=== PATIENT | male | born 1955 | race African-American/Black ===

== ENCOUNTER 2017-03-16 12:45 | Inpatient (IN) | payer OTHER ==
[2017-03-16] VITALS (14 sets, daily range): BP systolic 103–129; BP diastolic 52–99; PULSE 78–91; TEMP 36.7–37.1; O2SAT 97–100; Ht 190.5 cm; Wt 103.0 kg
[~2017-03-16] VITALS: Ht 190.5 cm; Wt 103.0 kg
[2017-03-16] MEDS ORDERED: GI COCKTAIL PO STA (13:11)
[2017-03-16] MEDS ORDERED: SODIUM CHLORIDE 0.9% 1000ML 1,000 ML IV STA (13:11)
--- NOTE | 2017-03-16 13:19 | EMERGENCY ROOM VISIT NOTE ---
History Report prepared by Miguel: Debbie Mendoza Under the Supervision of: Dr. Wu Jacome M.D. First contact with patient: 12:55 Chief Complaint: ABDOMINAL PAIN Stated Complaint: BLACK STOOL,ABD PAIN History of Present Illness The patient is a 62 year old male who presents to the Emergency Room with complaints of an episode of abdominal pain starting a week ago. The patient states he has had similar pain like this before. He reports that the pain feels crampy and uncomfortable. He reports that sometimes it feels like he has to pass gas, but nothing comes out. The patient complains of melena, loss of appetite, fever, chills, diaphoresis, weakness, dizziness, and nausea. He notes that he has had a colonoscopy in the past that showed no polyps. The patient currently rates his pain as a 2/10 in severity. Source of History: patient Onset: a week ago Position: abdomen Symptom Intensity: 2/10 Quality: cramping, other (uncomfortable) Timing: other (episode) Associated Symptoms: + fevers, + chills, + diaphoresis, + nausea, + melena, + weakness Note: The patient complains of loss of appetite and dizziness. Review of Systems See HPI for pertinent positives & negatives. A total of 10 systems reviewed and were otherwise negative. Past Medical & Surgical Medical Problems: (1) Hx of abdominal pain Family History No pertinent family history Social History Alcohol Use: none Marital Status: single Housing Status: other (incarcerated) Current/Historical Medications Scheduled Pantoprazole (Protonix), 40 MG PO DAILY Allergies Coded Allergies: No Known Allergies (Unverified , 03/16/17) Physical Exam Vital Signs Date Time Temp Pulse Resp B/P (MAP) Pulse Ox O2 Delivery O2 Flow Rate FiO2 03/16/17 15:23 03/16/17 15:21 36.9 86 16 118/60 98 03/16/17 15:06 36.7 91 20 119/99 100 03/16/17 14:16 100 Room Air 03/16/17 14:16 87 18 128/59 100 Room Air 03/16/17 13:18 96 03/16/17 12:47 36.8 119 20 123/72 99 Room Air Physical Exam GENERAL: Patient is a healthy-appearing well-nourished HEAD: Normocephalic atraumatic EYES: Ocular movements intact pupils equal and react to light OROPHARYNX mucous membranes are moist no exudates present no erythema or edema present NECK: Supple no nuchal rigidity CHEST: Good equal expansion LUNGS: Clear and equal to auscultation CARDIAC: Normal S1 and S2 ABDOMEN: Soft nontender no guarding BACK: No CVA tenderness EXTREMITIES: No pain upon palpation normal muscle strength in all groups no clubbing cyanosis or edema NEURO: Patient is following commands and answering questions appropriately. Alert and oriented x3 Cranial Nerves 2-12 grossly intact Medical Decision & Procedures ER Provider Diagnostic Interpretation: Radiology results as stated below per my review and radiologist interpretation: ABD/PELVIS IV CONTRAST ONLY HISTORY: 62 years-old Male Pt c/o abd discomfort, gi bleed COMPARISON: None available TECHNIQUE: Axial CT images of the abdomen and pelvis were obtained following the intravenous administration of 93 mL Optiray 320. A dose lowering technique was used consistent with the principals of MARIPOSA. FINDINGS: Linear subsegmental pleural based opacities of the right greater than left lung bases suggest atelectasis with scarring. There is a 4 mm noncalcified pulmonary nodule of the lateral basal segment left lower lobe. No pneumoperitoneum is identified. The imaged inferior cardiac chambers are unremarkable. The liver, gallbladder, pancreas and adrenal glands appear normal. There is a nonspecific 4 mm low attenuating lesion of the mid spleen which is too small to characterize. There are a few low attenuating subcentimeter circumscribed lesions of the bilateral kidneys, largest on the right measuring 10 mm suggesting cysts. No renal calculi or hydronephrosis. There is marked enlargement and heterogeneity of the prostate measuring up to 6.5 x 6.7 x 11.5 cm in AP, transverse and craniocaudal dimensions extending into the bladder base causing significant mass effect upon the bladder. There is wall thickening of the urinary bladder gradually. There is mild atherosclerosis of the abdominal aorta. There is no bulky retroperitoneal adenopathy. There is no bowel obstruction. No colonic mass is identified. No focal bowel wall thickening or inflammatory changes to account for the patient's symptoms. No evidence of acute appendicitis. Small fat filled umbilical hernia is noted with diastases of the umbilical [1.5 cm. There are postsurgical changes of the right lower anterior abdominal wall. The bones appear intact. IMPRESSION: 1. No acute intra-abdominal or intrapelvic abnormality identified. No bowel obstruction. 2. Marked enlargement and heterogeneity of the prostate measuring up to 6.5 x 6.7 x 11.5 cm causes significant mass effect on the floor of the urinary bladder without evidence of urinary bladder outlet obstruction. Correlate with physical exam and PSA level. 3. 4 mm noncalcified pulmonary nodule of the lateral basal segment left lower lobe. Please refer to below summary of Fleischner criteria recommendations for follow-up of incidental CT nodules (José Luis Medrano, Guidelines for management of small pulmonary nodules detected on CT scans: A statement from the Fleischner Society, Radiology 237: [phone].) SOLID NODULES Solitary nodule size: <6 mm * Low risk patients: no follow-up needed * high risk patients: optional CT at 12 months Note: newly detected indeterminate nodule in persons 35 years of age or older. * Low risk patients: minimal or absent history of smoking and/or other known risk factors * high risk patients: history of smoking or of other known risk factors (e.g. first degree relative with lung cancer, or exposure to asbestos, radon, uranium) * if a nodule up to 8 mm is partly solid or is ground glass further follow-up is required after 24 months to exclude possible slow growing adenocarcinoma (PILO) The above report was generated using voice recognition software. It may contain grammatical, syntax or spelling errors. Electronically signed by: John Thomas M.D. 03/16/2017 2:17 PM Dictated Date/Time: 03/16/2017 2:07 PM Laboratory Results 03/16/17 13:17 Red Blood Count 2.47, Mean Corpuscular Volume 88.7, Mean Corpuscular Hemoglobin 29.6, Mean Corpuscular Hemoglobin Concent 33.3, Mean Platelet Volume 10.5, Neutrophils (%) (Auto) 71.7, Lymphocytes (%) (Auto) 16.2, Monocytes (%) (Auto) 7.1, Eosinophils (%) (Auto) 2.1, Basophils (%) (Auto) 0.5, Neutrophils # (Auto) 8.38, Lymphocytes # (Auto) 1.89, Monocytes # (Auto) 0.83, Eosinophils # (Auto) 0.25, Basophils # (Auto) 0.06 03/16/17 13:17 Test 03/16/17 13:17 03/16/17 13:27 03/16/17 14:14 White Blood Count 11.69 K/uL (4.8-10.8) Red Blood Count 2.47 M/uL (4.7-6.1) Hemoglobin 7.3 g/dL (14.0-18.0) Hematocrit 21.9 % (42-52) Mean Corpuscular Volume 88.7 fL (80-100) Mean Corpuscular Hemoglobin 29.6 pg (25-34) Mean Corpuscular Hemoglobin Concent 33.3 g/dl (32-36) Platelet Count 295 K/uL (130-400) Mean Platelet Volume 10.5 fL (7.4-10.4) Neutrophils (%) (Auto) 71.7 % Lymphocytes (%) (Auto) 16.2 % Monocytes (%) (Auto) 7.1 % Eosinophils (%) (Auto) 2.1 % Basophils (%) (Auto) 0.5 % Neutrophils # (Auto) 8.38 K/uL (1.4-6.5) Lymphocytes # (Auto) 1.89 K/uL (1.2-3.4) Monocytes # (Auto) 0.83 K/uL (0.11-0.59) Eosinophils # (Auto) 0.25 K/uL (0-0.5) Basophils # (Auto) 0.06 K/uL (0-0.2) RDW Standard Deviation 46.8 fL (36.4-46.3) RDW Coefficient of Variation 14.9 % (11.5-14.5) Immature Granulocyte % (Auto) 2.4 % Immature Granulocyte # (Auto) 0.28 K/uL (0.00-0.02) Nucleated RBC Absolute Count (auto) 0.29 K/uL (0-0) Nucleated Red Blood Cells % 2.5 % Polychromasia 1+ Prothrombin Time 10.1 SECONDS (9.0-12.0) Prothromb Time International Ratio 0.9 (0.9-1.1) Activated Partial Thromboplast Time 20.8 SECONDS (21.0-31.0) Partial Thromboplastin Ratio 0.8 Est Creatinine Clear Calc Drug Dose 114.2 ml/min Estimated GFR () 106.2 Estimated GFR (Non- 91.6 BUN/Creatinine Ratio 16.0 (10-20) Calcium Level 8.6 mg/dl (8.5-10.1) Ferritin 27.6 ng/ml (8.0-388.0) Total Bilirubin 0.5 mg/dl (0.2-1) Direct Bilirubin 0.2 mg/dl (0-0.2) Aspartate Amino Transf (AST/SGOT) 222 U/L (15-37) Alanine Aminotransferase (ALT/SGPT) 449 U/L (12-78) Alkaline Phosphatase 54 U/L (45-117) Total Protein 6.4 gm/dl (6.4-8.2) Albumin 3.1 gm/dl (3.4-5.0) Lipase 297 U/L (73-393) Prostate Specific Antigen 50.400 ng/ml (0.000-4.000) Bedside Hemoglobin 7.5 g/dl (14.0-18.0) Bedside Hematocrit 22 % (42-52) Bedside Sodium 138 mEq/L (135-144) Bedside Potassium 3.7 mEq/L (3.3-5.0) Bedside Chloride 102 mEq/L (101-112) Bedside Total CO2 23 mEq/l (24-31) Anion Gap 18.0 mmol/L (16-25) Bedside Blood Urea Nitrogen 15 mg/dl (7-18) Bedside Creatinine 0.9 mg/dl (0.6-1.3) Bedside Glucose (other) 133 mg/dl (70-99) Bedside Ionized Calcium (Jacinto) 1.16 mmol/l (1.12-1.32) Acetaminophen Level 3 ug/ml (10-30) Hepatitis C Antibody PRELIM POS (NEG) Labs reviewed by ED physician. Medications Administered Medications (Trade) Dose Ordered Sig/Gabriel Route Start Time Stop Time Status Last Admin Dose Admin Sodium Chloride 1,000 ml @ 999 mls/hr Q1H1M STAT IV 03/16/17 13:11 03/16/17 14:11 DC 03/16/17 13:41 999 MLS/HR Pantoprazole Sodium 80 mg/ Dextrose 120 ml @ 480 mls/hr TODAY@1330 IV 03/16/17 13:30 03/16/17 13:44 DC 03/16/17 13:39 480 MLS/HR Pantoprazole Sodium 40 mg/ Dextrose 100 ml @ 20 mls/hr Q5H IV 03/16/17 13:45 03/16/17 18:44 03/16/17 13:39 20 MLS/HR Lidocaine HCl (Viscous Lidocaine 2% Soln) 20 ml STK-MED ONCE .ROUTE 03/16/17 13:31 03/16/17 13:32 DC 03/16/17 13:40 20 ML Magnesium Hydroxide (Milk Of Magnesia Susp) 30 ml STK-MED ONCE .ROUTE 03/16/17 13:31 03/16/17 13:32 DC 03/16/17 13:40 30 ML ECG Indication: abdominal pain Rate (beats per minute): 87 Rhythm: normal sinus Findings: no acute ischemic change, no ectopy ED Course 1305: Past medical records reviewed. The patient was evaluated in room C9. A complete history and physical examination was performed. 1311: Ordered GI Cocktail 24 ml PO, Pantoprazole Sodium 1 ea IV, NSS 1000 ml @ 999 mls/hr IV. 1330: Ordered Pantoprazole Sodium 90 mg/ Dextrose 120 ml @ 480 mls/hr IV. 1331: Ordered Magnesium Hydroxide 30 ml .ROUTE, Lidocaine HCl 20 ml .ROUTE. 1344: I just signed the blood consent for him and it has been placed on the chart. 1345: Ordered Pantoprazole Sodium 40 mg/ Dextrose 100 ml @ 20 mls/hr IV. 1434: I discussed the patient's case with ESTRELLA Haines, she has agreed to evaluate the patient for further management and care. Medical Decision Differential diagnosis: Etiologies such as diverticulosis, AVM, coagulopathy, colitis, inflammatory bowel disease, malignancy, Irma-Rivas tear, esophagitis, peptic ulcer disease , variceal bleed, gastritis, epistaxis, fissure, hemorrhoids, as well as others were entertained. This is a 62-year-old male who presents emergency department complaining of GI bleed. Patient is a history of GI bleeds previously. He has been having black and tarry stool for the past week. His hemoglobin here is 7. Based on this finding the patient was started on a Protonix bolus and drip. He was typed and screened for 2 units of packed red blood cells. The blood consent was signed by the patient and placed on the chart. The patient is heme positive on rectal exam. Based on these findings I did discuss the case with the hospitalist service who agreed to admit the patient. Both patient and caregivers were in agreement with the treatment plan. Medication Reconcilliation Current Medication List: was personally reviewed by me Blood Pressure Screening Patient's blood pressure: Normal blood pressure Blood pressure disposition: Did not require urgent referral Consults Time Called: 1430 Consulting Physician: ESTRELLA Haines Returned Call: 1434 I discussed the patient's case with ESTRELLA Haines, she has agreed to evaluate the patient for further management and care. Impression Primary Impression: GI bleed Additional Impression: Anemia Critical Care I have personally spent greater than 30 minutes of critical care time in the direct management of this patient. This includes bedside care, interpretation of diagnostic studies, and testing, discussion with consultants, patient, and family members, and other required patient management activities. This 30 minutes is in excess of all separately billable procedures. Scribe Attestation The scribe's documentation has been prepared under my direction and personally reviewed by me in its entirety. I confirm that the note above accurately reflects all work, treatment, procedures, and medical decision making performed by me. Departure Information Dispostion Being Evaluated By Hospitalist Referrals Wilner LINDSEY (PCP) Patient Instructions My [facility] Problem Qualifiers Primary Impression: GI bleed GI bleed type/associated pathology: unspecified gastrointestinal hemorrhage type Qualified Codes: K92.2 - Gastrointestinal hemorrhage, unspecified Additional Impression: Anemia Anemia type: unspecified type Qualified Codes: D64.9 - Anemia, unspecified
[2017-03-16 13:30] LABS: BASO % 0.5 %; BASO ABS # 0.06 K/uL (0-0.2); EOS % 2.1 %; HEMATOCRIT 21.9 % (42-52); IG% 2.4 %; LYMPH % 16.2 %; LYMPH ABS # 1.89 K/uL (1.2-3.4); MEAN CELL VOLUME 88.7 fL (80-100); MEAN CORPUSCULAR HEMOGLOBIN 29.6 pg (25-34); MEAN CORPUSCULAR HGB CONC 33.3 g/dl (32-36); MEAN PLATELET VOLUME 10.5 fL (7.4-10.4); MONO % 7.1 %; NEUT % 71.7 %; PLATELET COUNT 295 K/uL (130-400); RED BLOOD COUNT 2.47 M/uL (4.7-6.1); WHITE BLOOD COUNT 11.69 K/uL (4.8-10.8)
[2017-03-16] MEDS ORDERED: PANTOprazole INJ 80 MG in DEXTROSE 5% 100ML IV SCH (13:30)
[2017-03-16] MEDS ORDERED: OPTIRAY 320 IV PRN (13:30)
[2017-03-16] MEDS ORDERED: LIDOCAINE HCL 2% VISC SOLN 20 ML UDC ONE (13:31)
[2017-03-16] MEDS ORDERED: MAGNESIUM HYDROXIDE SUSP 30 ML UDC ONE (13:31)
[2017-03-16 13:38] LABS: ISTAT CREATININE 0.9 mg/dl (0.6-1.3); ISTAT HEMOGLOBIN 7.5 g/dl (14.0-18.0); ISTAT IONIZED CALCIUM 1.16 mmol/l (1.12-1.32)
[2017-03-16 13:44] LABS: INR 0.9 (0.9-1.1); PARTIAL THROMBOPLASTIN RATIO 0.8; PROTHROMBIN TIME (PATIENT) 10.1 SECONDS (9.0-12.0)
[2017-03-16] MEDS ORDERED: PANTOprazole INJ 40 MG in DEXTROSE 5% 100ML IV SCH (13:45)
[2017-03-16 13:54] LABS: CALCIUM 8.6 mg/dl (8.5-10.1); CREATININE 0.89 mg/dl (0.60-1.40); POTASSIUM 3.7 mmol/L (3.5-5.1)
[2017-03-16 14:07] LABS: COMPLETE YES; POLYCHROMASIA 1+
--- NOTE | 2017-03-16 14:19 | DIAGNOSTIC IMAGING REPORT ---
ABD/PELVIS IV CONTRAST ONLY HISTORY: 62 years-old Male Pt c/o abd discomfort, gi bleed COMPARISON: None available TECHNIQUE: Axial CT images of the abdomen and pelvis were obtained following the intravenous administration of 93 mL Optiray 320. A dose lowering technique was used consistent with the principals of MARIPOSA. FINDINGS: Linear subsegmental pleural based opacities of the right greater than left lung bases suggest atelectasis with scarring. There is a 4 mm noncalcified pulmonary nodule of the lateral basal segment left lower lobe. No pneumoperitoneum is identified. The imaged inferior cardiac chambers are unremarkable. The liver, gallbladder, pancreas and adrenal glands appear normal. There is a nonspecific 4 mm low attenuating lesion of the mid spleen which is too small to characterize. There are a few low attenuating subcentimeter circumscribed lesions of the bilateral kidneys, largest on the right measuring 10 mm suggesting cysts. No renal calculi or hydronephrosis. There is marked enlargement and heterogeneity of the prostate measuring up to 6.5 x 6.7 x 11.5 cm in AP, transverse and craniocaudal dimensions extending into the bladder base causing significant mass effect upon the bladder. There is wall thickening of the urinary bladder gradually. There is mild atherosclerosis of the abdominal aorta. There is no bulky retroperitoneal adenopathy. There is no bowel obstruction. No colonic mass is identified. No focal bowel wall thickening or inflammatory changes to account for the patient's symptoms. No evidence of acute appendicitis. Small fat filled umbilical hernia is noted with diastases of the umbilical [1.5 cm. There are postsurgical changes of the right lower anterior abdominal wall. The bones appear intact. IMPRESSION: 1. No acute intra-abdominal or intrapelvic abnormality identified. No bowel obstruction. 2. Marked enlargement and heterogeneity of the prostate measuring up to 6.5 x 6.7 x 11.5 cm causes significant mass effect on the floor of the urinary bladder without evidence of urinary bladder outlet obstruction. Correlate with physical exam and PSA level. 3. 4 mm noncalcified pulmonary nodule of the lateral basal segment left lower lobe. Please refer to below summary of Fleischner criteria recommendations for follow-up of incidental CT nodules (José Luis Medrano, Guidelines for management of small pulmonary nodules detected on CT scans: A statement from the Fleischner Society, Radiology 237: [phone].) SOLID NODULES Solitary nodule size: <6 mm * Low risk patients: no follow-up needed * high risk patients: optional CT at 12 months Note: newly detected indeterminate nodule in persons 35 years of age or older. * Low risk patients: minimal or absent history of smoking and/or other known risk factors * high risk patients: history of smoking or of other known risk factors (e.g. first degree relative with lung cancer, or exposure to asbestos, radon, uranium) * if a nodule up to 8 mm is partly solid or is ground glass further follow-up is required after 24 months to exclude possible slow growing adenocarcinoma (PILO) The above report was generated using voice recognition software. It may contain grammatical, syntax or spelling errors. Electronically signed by: John Thomas M.D. 03/16/2017 2:17 PM Dictated Date/Time: 03/16/2017 2:07 PM
[2017-03-16] MEDS ORDERED: PANT40TA PO (14:35)
[2017-03-16] MEDS ORDERED: ONDANSETRON INJ 2 MG/ML 2 ML VIAL IV PRN ×2 (15:30)
[2017-03-16] MEDS ORDERED: ACETAMINOPHEN 325 MG TAB PO PRN (15:30)
--- NOTE | 2017-03-16 15:55 | History and Physical ---
History & Physical Date & Time of Service: Mar 16, 2017 at 15:35 Chief Complaint: Black Stool,Abd Pain Primary Care Physician: Wilner LINDSEY History of Present Illness Source: patient Patient is a 62yo M prisoner from [place] with no known PMH who presents after having 4-5 episodes of black, tarry stools over the past week. Last episode was this morning. A week ago, patient started to experience a decreased appetite, followed by abdominal cramps. Took one tablet of an unknown laxative to try and alleviate abdominal pain but cramps persisted. Over the next 5 days, patient felt nauseous and had 3-4 episodes of vomiting each day. Describes emesis as "frothy" but does not know much more about its character since he was in the dark. Thinks 1 episode had a trace amount of bright red blood but is unsure. During this time, patient also had 5 episodes of black, tarry mushy stool, with his last episode occurring this morning. Denies any NSAID use or hx of GI bleeds. Other symptoms at this time include subjective fever and chills. On Wednesday, pt was feeling lightheaded in the yard and "fell over". [facility] where he was monitored more closely over the past few days, given fluid and started on protonix. Was told that he has hepatitis but the guards accompanying him did not bring any records that reflect that finding. Was sent here once infirmary found his Hgb to be 7. At this time, patient feels weak and tired with some pain at the base of his neck which he attributes to tension. Denies any lightheadedness, headache, CP, palpitations, dyspnea, SOB, abd pain or nausea. Of note, patient had a normal colonoscopy and ?EGD in 2008. Family History No pertinent family history Sister from colon cancer in 2008. Social History Smoking Status: Current Every Day Smoker (Has not smoked for past 7 days. ) Alcohol Use: Denies etoh use since becoming an inmate in 2010. Previous to that , endorses 2-3 beers/day. Marital Status: single Housing status: other (incarcerated) Allergies Coded Allergies: No Known Allergies (Unverified , 03/16/17) Home Medications Scheduled Pantoprazole (Protonix), 40 MG PO DAILY Review of Systems Ten systems reviewed and negative except as noted in the HPI. Physical Exam Vital Signs Date Time Temp Pulse Resp B/P (MAP) Pulse Ox O2 Delivery O2 Flow Rate FiO2 03/16/17 15:23 03/16/17 15:21 36.9 86 16 118/60 98 03/16/17 15:06 36.7 91 20 119/99 100 03/16/17 14:16 100 Room Air 03/16/17 14:16 87 18 128/59 100 Room Air 03/16/17 13:18 96 03/16/17 12:47 36.8 119 20 123/72 99 Room Air General Appearance: WD/WN (Fatigued.), no apparent distress Head: normocephalic, atraumatic Eyes: normal inspection (Ptosis of left eyelid (chronic)), PERRL ENT: normal ENT inspection, hearing grossly normal Neck: supple, no adenopathy Respiratory/Chest: chest non-tender, lungs clear, normal breath sounds, no respiratory distress, no accessory muscle use Cardiovascular: regular rate, rhythm, no murmur, normal peripheral pulses Abdomen/GI: normal bowel sounds, non tender, soft, no organomegaly Back: normal inspection Extremities/Musculoskelatal: normal inspection (R Ankle deformity noted on medial aspect (chronic)), normal capillary refill, no pedal edema, normal range of motion Neurologic/Psych: no motor/sensory deficits, alert, normal mood/affect, oriented x 3 Skin: normal color, warm/dry Diagnostics Laboratory Results Results Past 24 Hours Test 03/16/17 13:17 03/16/17 13:27 03/16/17 14:14 03/16/17 15:28 Range/Units White Blood Count 11.69 4.8-10.8 K/uL Red Blood Count 2.47 4.7-6.1 M/uL Hemoglobin 7.3 14.0-18.0 g/dL Hematocrit 21.9 42-52 % Mean Corpuscular Volume 88.7 80-100 fL Mean Corpuscular Hemoglobin 29.6 25-34 pg Mean Corpuscular Hemoglobin Concent 33.3 32-36 g/dl Platelet Count 295 130-400 K/uL Mean Platelet Volume 10.5 7.4-10.4 fL Neutrophils (%) (Auto) 71.7 % Lymphocytes (%) (Auto) 16.2 % Monocytes (%) (Auto) 7.1 % Eosinophils (%) (Auto) 2.1 % Basophils (%) (Auto) 0.5 % Neutrophils # (Auto) 8.38 1.4-6.5 K/uL Lymphocytes # (Auto) 1.89 1.2-3.4 K/uL Monocytes # (Auto) 0.83 0.11-0.59 K/uL Eosinophils # (Auto) 0.25 0-0.5 K/uL Basophils # (Auto) 0.06 0-0.2 K/uL RDW Standard Deviation 46.8 36.4-46.3 fL RDW Coefficient of Variation 14.9 11.5-14.5 % Immature Granulocyte % (Auto) 2.4 % Immature Granulocyte # (Auto) 0.28 0.00-0.02 K/uL Nucleated RBC Absolute Count (auto) 0.29 0-0 K/uL Nucleated Red Blood Cells % 2.5 % Polychromasia 1+ Prothrombin Time 10.1 9.0-12.0 SECONDS Prothromb Time International Ratio 0.9 0.9-1.1 Activated Partial Thromboplast Time 20.8 21.0-31.0 SECONDS Partial Thromboplastin Ratio 0.8 Sodium Level 139 136-145 mmol/L Potassium Level 3.7 3.5-5.1 mmol/L Chloride Level 107 98-107 mmol/L Carbon Dioxide Level 26 21-32 mmol/L Anion Gap 6.0 18.0 16-25 mmol/L Blood Urea Nitrogen 14 7-18 mg/dl Creatinine 0.89 0.60-1.40 mg/dl Est Creatinine Clear Calc Drug Dose 114.2 ml/min Estimated GFR () 106.2 Estimated GFR (Non- 91.6 BUN/Creatinine Ratio 16.0 10-20 Random Glucose 127 70-99 mg/dl Calcium Level 8.6 8.5-10.1 mg/dl Ferritin 27.6 8.0-388.0 ng/ml Total Bilirubin 0.5 0.2-1 mg/dl Direct Bilirubin 0.2 0-0.2 mg/dl Aspartate Amino Transf (AST/SGOT) 222 15-37 U/L Alanine Aminotransferase (ALT/SGPT) 449 12-78 U/L Alkaline Phosphatase 54 45-117 U/L Total Protein 6.4 6.4-8.2 gm/dl Albumin 3.1 3.4-5.0 gm/dl Lipase 297 73-393 U/L Prostate Specific Antigen 50.400 0.000-4.000 ng/ml Bedside Hemoglobin 7.5 14.0-18.0 g/dl Bedside Hematocrit 22 42-52 % Bedside Sodium 138 135-144 mEq/L Bedside Potassium 3.7 3.3-5.0 mEq/L Bedside Chloride 102 101-112 mEq/L Bedside Total CO2 23 24-31 mEq/l Bedside Blood Urea Nitrogen 15 7-18 mg/dl Bedside Creatinine 0.9 0.6-1.3 mg/dl Bedside Glucose (other) 133 70-99 mg/dl Bedside Ionized Calcium (Jacinto) 1.16 1.12-1.32 mmol/l Acetaminophen Level 3 10-30 ug/ml Diagnostic Radiology CT Abd/Pelvis (03/16/17): IMPRESSION: 1. No acute intra-abdominal or intrapelvic abnormality identified. No bowel obstruction. 2. Marked enlargement and heterogeneity of the prostate measuring up to 6.5 x 6.7 x 11.5 cm causes significant mass effect on the floor of the urinary bladder without evidence of urinary bladder outlet obstruction. Correlate with physical exam and PSA level. 3. 4 mm noncalcified pulmonary nodule of the lateral basal segment left lower lobe. CXR normal Normal EKG Impression Assessment and Plan Patient is a 62yo M prisoner from [facility] with no known PMH who presents after having 4-5 episodes of black, tarry stools over the past week. Last episode was this morning. Melena/Upper GI bleed: -Endorses 4-5 episodes over the past week. Last episode was this morning. -Has experienced associated dizziness and some weakness; had 1 near syncopal episode on Wednesday -No hx of GI bleeds. Had a normal c-scope and ? EGD in 2008 -Risk factors: smoker, h/o etoh use (2-3 beers/day) prior to becoming an inmate in 2010 -Hemodynamically stable. Hgb of 7. Is receiving 2 units of prbcs -Continue IV protonix drip -Consulted GI. Recommended to keep NPO for EGD -Abd/pelvis CT: "No acute intra-abdominal or intrapelvic abnormality identified. " Acute blood loss anemia 2/2 GI bleed: -Hemodynamically stable. -Endorses some lightheadedness but denies CP, palpitations, headache -Hgb of 7. Is receiving 2 units of prbcs -Continue monitoring H&H Elevated LFTs: -Denies hx of liver disease. Has remote h/o etoh use. Denies tylenol use -Was told he had hepatitis in [facility], but no paperwork to support that -ALT of 449, AST of 222 -Hepatitis panel and autoimmune panel pending Enlarged prostate: -CT abd/pelvis showing "Marked enlargement and heterogeneity of the prostate measuring up to 6.5 x 6.7 x 11.5 cm causes significant mass effect on the floor of the urinary bladder " -+ symptoms of urgency and frequent urination -PSA elevated to 50 -Will require close PCP follow-up Pulmonary nodule: -CT Abd/pelvis showing "3.4 mm noncalcified pulmonary nodule of the lateral basal segment left lower lobe" -Recommend out-patient CT scan follow-up, especially since pt is a smoker DVT Ppx: SCDs Code status: FULL Dispo: Admit to telemetry Level of Care Telemetry Resuscitation Status FULL RESUSCITATION VTE Prophylaxis VTE Risk Assessment Done? Y/N: Yes Risk Level: Moderate Given or contraindicated: SCD's
--- NOTE | 2017-03-16 16:02 | Progress Note ---
Progress Note Date of Service Mar 16, 2017. Progress Note Patient was seen and evaluated with SHERITA Haines. Patient [facility] in from jail for evaluation for melena, anemia. Had c/o melena ( 4-5 times x 1 weeks), dizziness, nausea, abdominal cramps, dizziness x 1 week. Was noted to have low HB and thus sent to ER for evaluation Denies any new complaints at this point. EXAM: Gen- AAOX3, no distress Neck- No JVD Lungs- AEBE, no wheezing Heart- S1, S2 normal Abd- Soft, non tender, non tender, BS present Ext- No edema Labs reviewed - Hb 7.3 LFTs mildly elevated- AST/ALT 200/400S CT scan abd/pelvis reviewed ASSESSMENT/PLAN: MELENA/UPPER GI BLEEDING WITH SYMPTOMATIC ANEMIA D/D: PUD, Gastritis, AVM Risk factors: Smoker, ? Hx of Hepatitis C, Hx of alcohol use prior to 2009 / , 2-3 beers a day -Hemodynamically stable, Hb 7.3 -IV Protonix drip -2 units PRBC tranfusion -H & H monitoring -GI consulted. Case was discussed with SHERITA -Work up- CT scan abd//pelvis- no acute GI abnormalities noted ELEVATED LFTS -Mildly elevated ALT > AST -No clear etiology. Hx of hepatitis C ?, ? Hx of hepatitis C, prior alcohol use , No obstructive etiology noted as ALP, TB normal, No signs of cirrhosis as INR- normal, Albumin 3.1 -ER did work up including Hep Panel, Autoimmune panel - follow up ABNORMAL PSA Has some symptoms of urgency but no prior diagnosis of BPH -CT scan- prostate enlarged significantly -Will need further work up as PSA 50 PULMONARY NODULE As per CT scan- 4 mm in left lower lobe Per Fleischner criteria, as patient is an active smoker, would recommend CT scan in 12 months for follow up DVT PROPHYLAXIS SCDS/ASHVIN : Re: Melena DISPOSITION Admit to telemetry
--- NOTE | 2017-03-16 16:23 | Gastrointestinal Consultation ---
Gastrointestinal Consultation Date of Consultation: Mar 16, 2017 Attending Physician: Antonette Haines NP/Dr. Jenn Luna Consulting Physician: Dr. Andrew Reason for Consultation: Melena, anemia History of Present Illness Patient is a 62 year old male inmate at [facility] who was brought to [facility] ED for Melena. As far as we know, the pt tells me that he has been asked about risk factors for elevated LFTs, but as far as he knows, he does not have any remarkable PMH. The patient began with diffuse upper and lower abdomen pain and dizziness on Wednesday03/13/17. He has been cared for at the [facility] since that time. He recalls having passed about 4 black BMs since Wednesday, most recently this morning, all of these having been loose. He hasn't had further dizziness but the abdominal pain continued as "a little annoying." At one time there was a small amt of bright red blood in the stool but generally the BMs have been loose and black. He had one episode of nausea and brought up frothy liquid w/o hematemesis today. No NSAID use. Not on any anticoagulants or antiplatelet drugs. He recalls have undergone colonoscopy some time prior to 2010. He does not recall ever having had an upper endoscopy. He is a smoker. On arrival, he was tachycardic at 120/min, but this quickly normalized with IV fluids. He has not had any hypotension. Hb on arrival was 7.3. The only prior Hb on record was 11 in 2014. Again, on arrival here, BUN was normal. Ferritin was borderline at 27. The pt is seen and examined while he is resting in bed in the bed. He is awake, alert, oriented, w/o c/o pain. He is kept NPO. 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 Past Surgical History: Ankle fusion right. Family History No pertinent family history Social History Smoking Status: Current Every Day Smoker (Has not smoked for past 7 days. ) Alcohol Use: none Marital Status: single Housing Status: other (incarcerated) Allergies Coded Allergies: No Known Allergies (Unverified , 03/16/17) Current Medications Home Meds and Scripts Medications Dose Route/Sig Max Daily Dose Days Date Category Protonix (Pantoprazole Sodium) 40 Mg Tab 40 Mg PO DAILY 03/16/17 Reported Review of Systems Constitutional: No fever, No chills, No sweats, No weight loss, No weakness Eyes: No eye pain, No redness ENT: No sore throat, No trouble swallowing, No pain on swallowing Respiratory: No cough, No wheezing, No shortness of breath, No dyspnea on exertion Cardiac: No chest pain, No edema, No palpitations Abdomen: + see HPI, + pain Neuro: No memory loss, No weakness, No numbness/tingling, No vertigo, No balance problems Psych: No depression symptoms, No anxiety, No insomnia Heme: No abnormal bleeding/bruising, No night sweats Endo: No excessive thirst, No excessive urination Skin: No rash, No itch, No new/changing skin lesions, No jaundice Physical Exam Date Time Temp Pulse Resp B/P (MAP) Pulse Ox O2 Delivery O2 Flow Rate FiO2 03/16/17 15:46 85 18 108/52 100 03/16/17 15:23 03/16/17 15:21 36.9 86 16 118/60 98 03/16/17 15:06 36.7 91 20 119/99 100 03/16/17 14:16 100 Room Air 03/16/17 14:16 87 18 128/59 100 Room Air 03/16/17 13:18 96 03/16/17 12:47 36.8 119 20 123/72 99 Room Air General Appearance: no apparent distress Eyes: + pertinent finding (left eye with lid lag and increased tearing) ENT: pharynx normal Neck: supple, no adenopathy, thyroid normal Respiratory/Chest: chest non-tender, lungs clear, normal breath sounds, no accessory muscle use Cardiovascular: regular rate, rhythm, no JVD, no murmur Abdomen: normal bowel sounds, non tender, soft, no organomegaly Extremities: normal inspection, no pedal edema, normal capillary refill Neurologic/Psych: alert, normal mood/affect, oriented x 3 Skin: normal color, no jaundice, warm/dry, no rash Laboratory Results Last 24 Hours Test 03/16/17 13:17 03/16/17 13:27 03/16/17 14:14 03/16/17 15:28 White Blood Count 11.69 K/uL Red Blood Count 2.47 M/uL Hemoglobin 7.3 g/dL Hematocrit 21.9 % Mean Corpuscular Volume 88.7 fL Mean Corpuscular Hemoglobin 29.6 pg Mean Corpuscular Hemoglobin Concent 33.3 g/dl Platelet Count 295 K/uL Mean Platelet Volume 10.5 fL Neutrophils (%) (Auto) 71.7 % Lymphocytes (%) (Auto) 16.2 % Monocytes (%) (Auto) 7.1 % Eosinophils (%) (Auto) 2.1 % Basophils (%) (Auto) 0.5 % Neutrophils # (Auto) 8.38 K/uL Lymphocytes # (Auto) 1.89 K/uL Monocytes # (Auto) 0.83 K/uL Eosinophils # (Auto) 0.25 K/uL Basophils # (Auto) 0.06 K/uL RDW Standard Deviation 46.8 fL RDW Coefficient of Variation 14.9 % Immature Granulocyte % (Auto) 2.4 % Immature Granulocyte # (Auto) 0.28 K/uL Nucleated RBC Absolute Count (auto) 0.29 K/uL Nucleated Red Blood Cells % 2.5 % Polychromasia 1+ Prothrombin Time 10.1 SECONDS Prothromb Time International Ratio 0.9 Activated Partial Thromboplast Time 20.8 SECONDS Partial Thromboplastin Ratio 0.8 Sodium Level 139 mmol/L Potassium Level 3.7 mmol/L Chloride Level 107 mmol/L Carbon Dioxide Level 26 mmol/L Anion Gap 6.0 mmol/L 18.0 mmol/L Blood Urea Nitrogen 14 mg/dl Creatinine 0.89 mg/dl Est Creatinine Clear Calc Drug Dose 114.2 ml/min Estimated GFR () 106.2 Estimated GFR (Non- 91.6 BUN/Creatinine Ratio 16.0 Random Glucose 127 mg/dl Calcium Level 8.6 mg/dl Ferritin 27.6 ng/ml Total Bilirubin 0.5 mg/dl Direct Bilirubin 0.2 mg/dl Aspartate Amino Transf (AST/SGOT) 222 U/L Alanine Aminotransferase (ALT/SGPT) 449 U/L Alkaline Phosphatase 54 U/L Total Protein 6.4 gm/dl Albumin 3.1 gm/dl Lipase 297 U/L Prostate Specific Antigen 50.400 ng/ml Bedside Hemoglobin 7.5 g/dl Bedside Hematocrit 22 % Bedside Sodium 138 mEq/L Bedside Potassium 3.7 mEq/L Bedside Chloride 102 mEq/L Bedside Total CO2 23 mEq/l Bedside Blood Urea Nitrogen 15 mg/dl Bedside Creatinine 0.9 mg/dl Bedside Glucose (other) 133 mg/dl Bedside Ionized Calcium (Jacinto) 1.16 mmol/l Acetaminophen Level 3 ug/ml Hepatitis C Antibody PRELIM POS Test 03/16/17 15:43 Creatine Kinase MB Ratio CT Abd/Pelvis (03/16/17): IMPRESSION: 1. No acute intra-abdominal or intrapelvic abnormality identified. No bowel obstruction. 2. Marked enlargement and heterogeneity of the prostate measuring up to 6.5 x 6.7 x 11.5 cm causes significant mass effect on the floor of the urinary bladder without evidence of urinary bladder outlet obstruction. Correlate with physical exam and PSA level. 3. 4 mm noncalcified pulmonary nodule of the lateral basal segment left lower Impression Patient is a 62 year old male with melena, anemia. Differentials considered are gastric ulcer, H Pylori gastritis, duodenitis. Less likely is a lower GI bleed or colon cancer. Though he has elevated LFTs, there is no evidence of cirrhosis (no decreased platelets, no suggestions of cirrhosis on CT). Plan 1. Will plan for EGD tomorrow. 2. Ice chips OK today and NPO after midnight. 3. Appreciate primary services management: blood transfusion, PPI drip. I have seen, examined this patient and agree with the plan and exam as outlined above by ESTRELLA Metzger. -Plan for EGD after blood transfusion and IV PPI infusion -HD stable, 3-4 bouts of melena this week, none in over 12 hrs
[2017-03-16] MEDS: PANTOprazole INJ 40 MG in DEXTROSE 5% 100ML IV SCH ×2 (17:41→23:05)
[2017-03-16 18:05] LABS: URINE APPEARANCE CLEAR (CLEAR); URINE BILIRUBIN NEG (NEG); URINE COLOR YELLOW; URINE NITRITE NEG (NEG); URINE SPECIFIC GRAVITY > 1.045 (1.000-1.030); UROBILINOGEN POS (NEG)
[2017-03-16 18:06] LABS: MANUAL MICROSCOPIC REQUIRED? NO; REVIEW REQ? NO
[2017-03-16] MEDS: ACETAMINOPHEN 325 MG TAB PO PRN ×2 (19:26→19:56)
[2017-03-16] MEDS: SODIUM CHLORIDE 0.9% 1000ML 1,000 ML IV SCH (20:40)
[2017-03-16] MEDS ORDERED: ACETAMINOPHEN 650 MG SUPP PR PRN (21:30)
[2017-03-16 21:31] LABS: HEMATOCRIT 23.7 % (42-52)
[2017-03-16 23:23] LABS: HEMATOCRIT 22.6 % (42-52)
[2017-03-17] VITALS (11 sets, daily range): BP systolic 102–133; BP diastolic 57–94; PULSE 61–91; TEMP 36.4–37; O2SAT 97–100
[2017-03-17] MEDS: SODIUM CHLORIDE 0.9% 1000ML 1,000 ML IV SCH ×2 (01:46→11:32)
[2017-03-17] MEDS: PANTOprazole INJ 40 MG in DEXTROSE 5% 100ML IV SCH (04:13)
[2017-03-17 05:40] LABS: HEMATOCRIT 26.5 % (42-52); MEAN CELL VOLUME 87.2 fL (80-100); MEAN CORPUSCULAR HEMOGLOBIN 28.9 pg (25-34); MEAN CORPUSCULAR HGB CONC 33.2 g/dl (32-36); MEAN PLATELET VOLUME 10.4 fL (7.4-10.4); PLATELET COUNT 240 K/uL (130-400); RED BLOOD COUNT 3.04 M/uL (4.7-6.1); WHITE BLOOD COUNT 8.18 K/uL (4.8-10.8)
[2017-03-17 06:11] LABS: BLOOD UREA NITROGEN 9 mg/dl (7-18); BUN/CREATININE RATIO 12.8 (10-20); CARBON DIOXIDE 26 mmol/L (21-32); CHLORIDE 112 mmol/L (98-107); GLUCOSE 97 mg/dl (70-99); POTASSIUM 3.5 mmol/L (3.5-5.1); SODIUM 141 mmol/L (136-145)
[2017-03-17] MEDS ORDERED: PROPOFOL IV EMULSION 10 MG/ML 20 ML VIAL IV ONE (08:12)
[2017-03-17] MEDS ORDERED: LIDOCAINE HCL 2% 2 ML VIAL (20MG/ML) ONE (08:12)
--- NOTE | 2017-03-17 09:29 | GI REPORT ---
Procedure Date: 03/17/2017 9:05 AM Procedure: Upper GI endoscopy Indications: Melena Medicines: General Anesthesia Complications: No immediate complications. Estimated blood loss: None. Estimated Blood Loss: Estimated blood loss: none. Procedure: Pre-Anesthesia Assessment: - Pre-Anesthesia Assessment: - Prior to the procedure, a History and Physical was performed, and patient medications, allergies and sensitivities were reviewed. The patient's tolerance of previous anesthesia was reviewed. Please see [employer] for complete details. - The risks and benefits of the procedure and the sedation options and risks were discussed with the patient. All questions were answered and informed consent was obtained. - Patient identification and proposed procedure were verified prior to the procedure by the physician and the nurse. The procedure was verified in the pre-procedure area in the procedure room. After obtaining informed consent, the endoscope was passed carefully and meticuously under direct vision and only advanced when the lumen was clearly identified, C02 insuflation was utilized throughout the entirity of the procedure. Throughout the procedure, the patient's blood pressure, pulse, and oxygen saturations were monitored continuously. - Pre-Anesthesia Assessment: - Prior to the procedure, a History and Physical was performed, and patient medications, allergies and sensitivities were reviewed. The patient's tolerance of previous anesthesia was reviewed. Please see [employer] for complete details. - The risks and benefits of the procedure and the sedation options and risks were discussed with the patient. All questions were answered and informed consent was obtained. - Patient identification and proposed procedure were verified prior to the procedure by the physician and the nurse. The procedure was verified in the pre-procedure area in the procedure room. After obtaining informed consent, the endoscope was passed carefully and meticuously under direct vision and only advanced when the lumen was clearly identified, C02 insuflation was utilized throughout the entirity of the procedure. Throughout the procedure, the patient's blood pressure, pulse, and oxygen saturations were monitored continuously. After obtaining informed consent, the endoscope was passed under direct vision. Throughout the procedure, the patient's blood pressure, pulse, and oxygen saturations were monitored continuously.The upper GI endoscopy was accomplished without difficulty. The patient tolerated the procedure well. The Scope was introduced through the mouth, and advanced to the second part of duodenum. Findings: The examined esophagus was normal. The entire examined stomach was normal. One non-bleeding cratered duodenal ulcer with a clean ulcer base (Elvis Class III) was found in the duodenal bulb. The lesion was 8 mm in largest dimension. Impression: - Normal esophagus. - Normal stomach. - One non-bleeding duodenal ulcer with a clean ulcer base (Elvis Class III). - No specimens collected. Recommendation: - Return patient to [facility] for ongoing care. - Clear liquid diet. - Use Protonix (pantoprazole) 40 mg PO BID for 2 months, then 20 mg daily. - No NSAIDS - Stool antigen for H Pylori - If no bleeding overnight, then can d/c in the am. Lazarus Andrew MD 03/17/2017 9:28:24 AM This report has been signed electronically. Note Initiated On: 03/17/2017 9:05 AM I attest to the content of the Intraoperative Record and orders documented therein, exceptions below
--- NOTE | 2017-03-17 10:00 | Anesthesiology Progress Note ---
Anesthesia Post Op Note Date & Time Mar 17, 2017 at 10:00 Vital Signs Pain Intensity: 0 Vital Signs Past 12 Hours Date Time Temp Pulse Resp B/P (MAP) Pulse Ox O2 Delivery O2 Flow Rate FiO2 03/17/17 09:50 77 20 141/69 (93) 98 Room Air 03/17/17 09:40 71 20 114/72 (86) 99 Room Air 03/17/17 09:30 93 20 94/59 (71) 94 Room Air 03/17/17 08:43 36.8 78 18 126/52 (76) 99 Room Air 03/17/17 08:00 Room Air 03/17/17 07:59 36.5 72 18 118/59 97 Room Air 03/17/17 07:22 36.5 72 18 118/59 (78) 97 Room Air 03/17/17 04:00 Room Air 03/17/17 03:38 63 112/72 03/17/17 02:38 67 102/60 03/17/17 02:08 81 119/70 03/17/17 01:47 36.5 74 16 131/71 99 03/17/17 00:00 Room Air 03/16/17 23:08 36.7 78 18 122/68 (86) 98 Room Air Notes Mental Status: alert / awake / arousable, participated in evaluation Pt Amnestic to Procedure: Yes Nausea / Vomiting: adequately controlled Pain: adequately controlled Airway Patency, RR, SpO2: stable & adequate BP & HR: stable & adequate Hydration State: stable & adequate Anesthetic Complications: no major complications apparent
--- NOTE | 2017-03-17 12:02 | Progress Note ---
Medicine Progress Note Date & Time of Visit: Mar 17, 2017 at 12:02. (Michelle Sorensen, P.A.-C.) Subjective Patient doing well today. Denies any abdominal pain, nausea or vomiting. Had one bowel movement this AM that was black in color but more formed than previously. Denies chills, lightheadedness, headache, palpitations, CP, SOB, weakness. (Michelle Sorensen, P.A.-C.) Objective Last 8 Hrs Date Time Temp Pulse Resp B/P (MAP) Pulse Ox O2 Delivery O2 Flow Rate FiO2 03/17/17 11:12 36.5 73 18 103/60 (74) 97 Room Air 03/17/17 10:15 36.4 87 18 133/94 100 Room Air 03/17/17 09:50 77 20 141/69 (93) 98 Room Air 03/17/17 09:40 71 20 114/72 (86) 99 Room Air 03/17/17 09:30 93 20 94/59 (71) 94 Room Air 03/17/17 08:43 36.8 78 18 126/52 (76) 99 Room Air 03/17/17 08:00 Room Air 03/17/17 07:59 36.5 72 18 118/59 97 Room Air 03/17/17 07:22 36.5 72 18 118/59 (78) 97 Room Air Physical Exam: General Appearance: WD/WN (Fatigued.), no apparent distress Head: normocephalic, atraumatic Eyes: normal inspection (Ptosis of left eyelid (chronic)), PERRL ENT: normal ENT inspection, hearing grossly normal Neck: supple, no adenopathy Respiratory/Chest: chest non-tender, lungs clear, normal breath sounds, no respiratory distress, no accessory muscle use Cardiovascular: regular rate, rhythm, no murmur, normal peripheral pulses Abdomen/GI: normal bowel sounds, non tender, soft, no organomegaly Back: normal inspection Extremities/Musculoskelatal: normal inspection (R Ankle deformity noted on medial aspect (chronic)), normal capillary refill, no pedal edema, normal range of motion Neurologic/Psych: no motor/sensory deficits, alert, normal mood/affect, oriented x 3 Skin: normal color, warm/dry Laboratory Results: Last 24 Hours Test 03/16/17 13:17 03/16/17 13:27 03/16/17 14:14 03/16/17 15:43 White Blood Count 11.69 K/uL Red Blood Count 2.47 M/uL Hemoglobin 7.3 g/dL Hematocrit 21.9 % Mean Corpuscular Volume 88.7 fL Mean Corpuscular Hemoglobin 29.6 pg Mean Corpuscular Hemoglobin Concent 33.3 g/dl Platelet Count 295 K/uL Mean Platelet Volume 10.5 fL Neutrophils (%) (Auto) 71.7 % Lymphocytes (%) (Auto) 16.2 % Monocytes (%) (Auto) 7.1 % Eosinophils (%) (Auto) 2.1 % Basophils (%) (Auto) 0.5 % Neutrophils # (Auto) 8.38 K/uL Lymphocytes # (Auto) 1.89 K/uL Monocytes # (Auto) 0.83 K/uL Eosinophils # (Auto) 0.25 K/uL Basophils # (Auto) 0.06 K/uL RDW Standard Deviation 46.8 fL RDW Coefficient of Variation 14.9 % Immature Granulocyte % (Auto) 2.4 % Immature Granulocyte # (Auto) 0.28 K/uL Nucleated RBC Absolute Count (auto) 0.29 K/uL Nucleated Red Blood Cells % 2.5 % Polychromasia 1+ Prothrombin Time 10.1 SECONDS Prothromb Time International Ratio 0.9 Activated Partial Thromboplast Time 20.8 SECONDS Partial Thromboplastin Ratio 0.8 Sodium Level 139 mmol/L Potassium Level 3.7 mmol/L Chloride Level 107 mmol/L Carbon Dioxide Level 26 mmol/L Anion Gap 6.0 mmol/L 18.0 mmol/L Blood Urea Nitrogen 14 mg/dl Creatinine 0.89 mg/dl Est Creatinine Clear Calc Drug Dose 114.2 ml/min Estimated GFR () 106.2 Estimated GFR (Non- 91.6 BUN/Creatinine Ratio 16.0 Random Glucose 127 mg/dl Calcium Level 8.6 mg/dl Ferritin 27.6 ng/ml Total Bilirubin 0.5 mg/dl Direct Bilirubin 0.2 mg/dl Aspartate Amino Transf (AST/SGOT) 222 U/L Alanine Aminotransferase (ALT/SGPT) 449 U/L Alkaline Phosphatase 54 U/L Total Protein 6.4 gm/dl Albumin 3.1 gm/dl Lipase 297 U/L Prostate Specific Antigen 50.400 ng/ml Bedside Hemoglobin 7.5 g/dl Bedside Hematocrit 22 % Bedside Sodium 138 mEq/L Bedside Potassium 3.7 mEq/L Bedside Chloride 102 mEq/L Bedside Total CO2 23 mEq/l Bedside Blood Urea Nitrogen 15 mg/dl Bedside Creatinine 0.9 mg/dl Bedside Glucose (other) 133 mg/dl Bedside Ionized Calcium (Jacinto) 1.16 mmol/l Acetaminophen Level 3 ug/ml Hepatitis C Antibody PRELIM POS Creatine Kinase MB Ratio Test 03/16/17 16:14 03/16/17 21:24 03/16/17 23:10 03/17/17 05:00 Creatine Kinase MB 0.8 ng/ml 0.7 ng/ml Troponin I < 0.015 ng/ml < 0.015 ng/ml Hemoglobin 8.0 g/dL 7.6 g/dL Hematocrit 23.7 % 22.6 % Creatine Kinase MB Ratio Test 03/17/17 05:20 White Blood Count 8.18 K/uL Red Blood Count 3.04 M/uL Hemoglobin 8.8 g/dL Hematocrit 26.5 % Mean Corpuscular Volume 87.2 fL Mean Corpuscular Hemoglobin 28.9 pg Mean Corpuscular Hemoglobin Concent 33.2 g/dl RDW Standard Deviation 48.2 fL RDW Coefficient of Variation 15.3 % Platelet Count 240 K/uL Mean Platelet Volume 10.4 fL Nucleated RBC Absolute Count (auto) 0.09 K/uL Nucleated Red Blood Cells % 1.0 % Sodium Level 141 mmol/L Potassium Level 3.5 mmol/L Chloride Level 112 mmol/L Carbon Dioxide Level 26 mmol/L Anion Gap 3.0 mmol/L Blood Urea Nitrogen 9 mg/dl Creatinine 0.70 mg/dl Est Creatinine Clear Calc Drug Dose 144.5 ml/min Estimated GFR () 117.2 Estimated GFR (Non- 101.1 BUN/Creatinine Ratio 12.8 Random Glucose 97 mg/dl Calcium Level 8.0 mg/dl Total Bilirubin 0.6 mg/dl Direct Bilirubin 0.3 mg/dl Aspartate Amino Transf (AST/SGOT) 178 U/L Alanine Aminotransferase (ALT/SGPT) 382 U/L Alkaline Phosphatase 43 U/L Creatine Kinase MB 1.1 ng/ml Troponin I < 0.015 ng/ml Total Protein 5.8 gm/dl Albumin 2.7 gm/dl (Michelle Sorensen ., P.A.-C.) Assessment & Plan This is a 62yo M prisoner from [facility] with PMH of HCV who presents after having 4-5 episodes of black, tarry stools over the past week and was found to have a non-bleeding duodenal ulcer. Upper GI bleed 2/2 duodenal ulcer: -Endorses 4-5 episodes of melena over the past week. Last episode was this morning. 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) prior to becoming an inmate in 2010 -EGD (03/17/17) with one 8mm non-bleeding, cratered duodenal ulcer with a clean ulcer base -Per GI recs, -Continue protonix drip in-patient and discharge on protonix 40mg PO BID for 2 months, then 20mg daily -Stool antigen for H pylori -Advance to clear liquid diet -If no bleeding overnight, can discharge in the AM Acute blood loss anemia 2/2 GI bleed: resolving -Hemodynamically stable -Endorses some lightheadedness but denies CP, palpitations, headache -Received another unit of prbcs overnight (for a total of 3 during admission) -Hgb now 8.8 -Continue monitoring serial H&Hs -Check CBC in the AM HCV: -Received records from [facility] with HCV listed as PMH -Preliminary lab for + HCV -Decreased transaminitis since yesterday with of ALT: 382, AST: 178 and Tbili of 0.3 -Autoimmune panel pending -Discussed with GI, who recommended follow-up with GI out-patient (coordinated by long term) Enlarged prostate: -CT abd/pelvis showing "Marked enlargement and heterogeneity of the prostate measuring up to 6.5x 6.7 x 11.5 cm causes significant mass effect on the floor of the urinary bladder " -+ symptoms of urgency and frequent urination -PSA elevated to 50 -Will require close PCP follow-up Pulmonary nodule: -CT Abd/pelvis showing "3.4 mm noncalcified pulmonary nodule of the lateral basal segment left lower lobe" -Recommend out-patient CT scan follow-up, especially since pt is a smoker DVT Ppx: SCDs Code status: FULL Dispo: Telemetry overnight Current Inpatient Medications: Current Inpatient Medications Medications (Trade) Dose Ordered Sig/Gabriel Route Start Time Stop Time Status Last Admin Dose Admin Ioversol (Optiray 320) 100 ml UD PRN IV 03/16/17 13:30 03/20/17 13:29 Acetaminophen (Tylenol Tab) 650 mg Q4H PRN PO 03/16/17 15:30 04/15/17 15:29 03/16/17 19:56 650 MG Ondansetron HCl (Zofran Inj) 4 mg Q6H PRN IV 03/16/17 15:30 04/15/17 15:29 Acetaminophen (Tylenol Supp) 650 mg Q4H PRN [place] 03/16/17 21:30 04/15/17 21:29 Pantoprazole Sodium (Protonix Tab) 40 mg BID PO 03/17/17 21:00 04/16/17 20:59 (Michelle Sorensen ., P.A.-C.) ATTENDING ADDENDUM care coordinated with MOOSE Sorensen please refer to her notes for full details, I agree with her notes patient seen and examined, records reviewed by myself as well on exam, patient seen prior to going down for EGD report 1 BM with dark stool in AM denies abdominal pain ,nausea denies chest pain, dyspnea, palpitations, dizziness no other symptoms VS noted and reviewed oriented x 3 , not in distress, speaks in sentences with no effort nor accessory muscle use normal rate, regular rhythm, no murmurs clear breath sounds bilaterally non distended, soft, nontender no bipedal edema, erythema, warmth no neuro deficits Hg 8.8 EGD: (+) non bleeding duodenal ulcer ASSESSMENT/PLAN> UPPER GI BLEED SECONDARY TO DUODENAL ULCER continue PPI ACUTE BLOOD LOSS ANEMIA Hg improved after 3 units pRBC repeat Hg in AM ENLARGED PROSTATE WITH URINARY RETENTION AND ELEVATED PSA Levin Cath insertion ordered Urology consulted other diagnoses and plan of care as per MOOSE Sorensen's notes Noah Akins MD (Noah Akins MD)
[2017-03-17 14:24] LABS: HEMATOCRIT 27.9 % (42-52)
--- NOTE | 2017-03-17 18:03 | Urology Consultation ---
History General Date of Service: Mar 17, 2017. Chief Complaint: urinary retention Primary Care Physician: Wilner LINDSEY Pt seen a urologist before?: No History of Present Illness I am asked by Dr rueda to evaluate and treat patient for urinary retention. he is admitted with UGUI bleed. He bled to a hgb of 7. His UGI shows 2 ulcers which have ceased bleeding. He noted after his UGI under sedation he struggled to void. he had a sensation of incomplete emptying. his bladder scan was high and a 14 fr narvaez was placed and drained 900ml urine. He got immediate relief. he fells his stream has been weak last few months. he has nocturia 4-5 times per night. his ct scan shows VERY VERY large prostate and his admission psa was 50 which is very high. Imaging Imaging: CT Laboratory Results Past 24 Hours Test 03/16/17 21:24 03/16/17 23:10 03/17/17 05:00 03/17/17 05:20 Range/Units Hemoglobin 8.0 7.6 8.8 14.0-18.0 g/dL Hematocrit 23.7 22.6 26.5 42-52 % Creatine Kinase MB 0.7 1.1 0.5-3.6 ng/ml Creatine Kinase MB Ratio 0-3.0 Troponin I < 0.015 < 0.015 0-0.045 ng/ml White Blood Count 8.18 4.8-10.8 K/uL Red Blood Count 3.04 4.7-6.1 M/uL Mean Corpuscular Volume 87.2 80-100 fL Mean Corpuscular Hemoglobin 28.9 25-34 pg Mean Corpuscular Hemoglobin Concent 33.2 32-36 g/dl RDW Standard Deviation 48.2 36.4-46.3 fL RDW Coefficient of Variation 15.3 11.5-14.5 % Platelet Count 240 130-400 K/uL Mean Platelet Volume 10.4 7.4-10.4 fL Nucleated RBC Absolute Count (auto) 0.09 0-0 K/uL Nucleated Red Blood Cells % 1.0 % Sodium Level 141 136-145 mmol/L Potassium Level 3.5 3.5-5.1 mmol/L Chloride Level 112 98-107 mmol/L Carbon Dioxide Level 26 21-32 mmol/L Anion Gap 3.0 3-11 mmol/L Blood Urea Nitrogen 9 7-18 mg/dl Creatinine 0.70 0.60-1.40 mg/dl Est Creatinine Clear Calc Drug Dose 144.5 ml/min Estimated GFR () 117.2 Estimated GFR (Non- 101.1 BUN/Creatinine Ratio 12.8 10-20 Random Glucose 97 70-99 mg/dl Calcium Level 8.0 8.5-10.1 mg/dl Total Bilirubin 0.6 0.2-1 mg/dl Direct Bilirubin 0.3 0-0.2 mg/dl Aspartate Amino Transf (AST/SGOT) 178 15-37 U/L Alanine Aminotransferase (ALT/SGPT) 382 12-78 U/L Alkaline Phosphatase 43 45-117 U/L Total Protein 5.8 6.4-8.2 gm/dl Albumin 2.7 3.4-5.0 gm/dl Test 03/17/17 14:02 Range/Units Hemoglobin 9.6 14.0-18.0 g/dL Hematocrit 27.9 42-52 % Labs were reviewed and are within normal limits unless listed below. Labs are available in the chart and at [facility] Problem List Medical Problems: (1) Anemia Status: Acute (2) GI bleed Status: Acute Past History GERD, GI bleed (upper) Pt had a problem w anesthesia?: No Past Surgical History: orthopedic surgery (right ankle reconstruction with ex fix then fusion with a muscle and skin graft medial malleolus. ) Family History No pertinent family history does not know the health histories of dad and uncles. sister had colon cancer Social History Hx Tobacco Use In Past Year?: Yes Smoking: less than 1 pack/day, other (had quit for 8 yrs at one time) Alcohol: never, other (used to drink 2-3 per day before incarcerated) Marital status: single Housing status: other (incarcerated) Allergies Coded Allergies: No Known Allergies (Unverified , 03/17/17) Medications Home Medications: Home Meds and Scripts Medications Dose Route/Sig Max Daily Dose Days Date Category Protonix (Pantoprazole Sodium) 40 Mg Tab 40 Mg PO DAILY 03/16/17 Reported Inpatient Medications: Current Inpatient Medications Medications (Trade) Dose Ordered Sig/Gabriel Route Start Time Stop Time Status Last Admin Dose Admin Ioversol (Optiray 320) 100 ml UD PRN IV 03/16/17 13:30 03/20/17 13:29 Acetaminophen (Tylenol Tab) 650 mg Q4H PRN PO 03/16/17 15:30 04/15/17 15:29 03/16/17 19:56 650 MG Ondansetron HCl (Zofran Inj) 4 mg Q6H PRN IV 03/16/17 15:30 04/15/17 15:29 Acetaminophen (Tylenol Supp) 650 mg Q4H PRN [place] 03/16/17 21:30 04/15/17 21:29 Pantoprazole Sodium (Protonix Tab) 40 mg BID PO 03/17/17 21:00 04/16/17 20:59 Review of Systems Review of Systems Constitutional: No fever, No chills, No weight loss Neurological: + dizzy, + passing out Endocrine: + too cold, + tired/sluggish, No excessive thirst, No too hot Gastrointestinal: + abdominal pain, + indigestion, + nausea, + vomiting, + diarrhea Cardiovascular: No chest pain, No palpitations, No swelling ankles/feet Respiratory: No shortness of breath, No chronic cough Musculoskeletal: + joint pain, + arthritis Male : + frequent urination, + urinary retention, + weak stream, + blood in urine, + nocturia more than once/night Physical Exam Vital Signs: Vital Signs Past 12 Hours Date Time Temp Pulse Resp B/P (MAP) Pulse Ox O2 Delivery O2 Flow Rate FiO2 03/17/17 16:00 Room Air 03/17/17 15:58 37.0 76 20 119/57 (77) 97 Room Air 03/17/17 12:00 Room Air 03/17/17 11:12 36.5 73 18 103/60 (74) 97 Room Air 03/17/17 10:15 36.4 87 18 133/94 100 Room Air 03/17/17 09:50 77 20 141/69 (93) 98 Room Air 03/17/17 09:40 71 20 114/72 (86) 99 Room Air 03/17/17 09:30 93 20 94/59 (71) 94 Room Air 03/17/17 08:43 36.8 78 18 126/52 (76) 99 Room Air 03/17/17 08:00 Room Air 03/17/17 07:59 36.5 72 18 118/59 97 Room Air 03/17/17 07:22 36.5 72 18 118/59 (78) 97 Room Air Physical Exam: General Appearance: WD/WN, no apparent distress, + thin Eyes: bilateral eyes normal inspection ENT: normal ENT inspection, hearing grossly normal Neck: no adenopathy, no JVD, trachea midline Respiratory/Chest: no respiratory distress, no accessory muscle use Gastrointestinal: Abdomen: normal abdomen Bladder: normal bladder Renal: normal renal Hernia: absent hernia Spleen: normal spleen Genitourinary - Male: Urethral Meatus: normal urethral meatus Testes: normal testes Anus / Perineum: normal anus/perineum Sphincter Tone: normal sphincter tone Prostate: pertinent finding (patient could not relax for exam and I could not reach prostate) Extremities: non-tender, normal inspection, no pedal edema, no calf tenderness , + pertinent finding (right ankle medial skin and muscle graft over medial malleolus, numerous right sun skin punctatate scars from ex fix) Neurologic/Psychiatric: alert, normal mood/affect, oriented x 3 Skin: normal color, warm/dry, no rash Lymphatic: no adenopathy Assessment & Plan Assessment & Plan very large prostate with urinary retention keep narvaez for a few days then void trial. if he fails void trial and cath needs to be reinserted, must be a coude curved catheter. start flomax 0.4mg and finasteride 5mg daily elevated psa- 50 I could not get good exam today. If the psa stays this high when retested in a month he needs to have a prostate biopsy
[2017-03-17] MEDS: PANTOprazole SOD 40 MG TAB PO SCH (20:37)
[2017-03-17] MEDS ORDERED: TAMSULOSIN HCL 0.4 MG CAP PO SCH (21:00)
[2017-03-18 04:44] VITALS: BP 124/66; PULSE 75; TEMP 36.7; O2SAT 97
[2017-03-18 06:37] LABS: HEMATOCRIT 27.7 % (42-52); MEAN CELL VOLUME 85.8 fL (80-100); MEAN CORPUSCULAR HEMOGLOBIN 27.2 pg (25-34); MEAN CORPUSCULAR HGB CONC 31.8 g/dl (32-36); MEAN PLATELET VOLUME 10.5 fL (7.4-10.4); PLATELET COUNT 286 K/uL (130-400); RED BLOOD COUNT 3.23 M/uL (4.7-6.1); WHITE BLOOD COUNT 8.19 K/uL (4.8-10.8)
[2017-03-18 07:14] LABS: BUN/CREATININE RATIO 5.9 (10-20); CALCIUM 8.1 mg/dl (8.5-10.1); CREATININE 0.73 mg/dl (0.60-1.40); POTASSIUM 3.2 mmol/L (3.5-5.1)
[2017-03-18 08:00] VITALS: BP 119/66; PULSE 81; TEMP 36.7; O2SAT 96
[2017-03-18] MEDS ORDERED: POTASSIUM CHLORIDE 20 MEQ TABCR PO ONE (08:30)
[2017-03-18] MEDS ORDERED: FINASTERIDE 5 MG TAB PO SCH (09:00)
--- NOTE | 2017-03-18 09:10 | Progress Note ---
Medicine Progress Note Date & Time of Visit: Mar 18, 2017 at 08:52. (Michelle Sorensen, P.A.-C.) Subjective Patient doing well today. Has not had any more dark stools. Denies any lightheadedness, abd pain, nausea/vomiting. Urinary retention symptoms have improved significantly since narvaez was placed yesterday. (Michelle Sorensen, P.A.-C.) Objective Last 8 Hrs Date Time Temp Pulse Resp B/P (MAP) Pulse Ox O2 Delivery O2 Flow Rate FiO2 03/18/17 08:00 36.7 81 18 119/66 (83) 96 Room Air 03/18/17 04:44 36.7 75 18 124/66 (85) 97 Room Air 03/18/17 04:00 Room Air Physical Exam: General Appearance: WD/WN (Fatigued.), no apparent distress Head: normocephalic, atraumatic Eyes: normal inspection (Ptosis of left eyelid (chronic)), PERRL ENT: normal ENT inspection, hearing grossly normal Neck: supple, no adenopathy Respiratory/Chest: chest non-tender, lungs clear, normal breath sounds, no respiratory distress, no accessory muscle use Cardiovascular: regular rate, rhythm, no murmur, normal peripheral pulses Abdomen/GI: normal bowel sounds, non tender, soft, no organomegaly : Narvaez placed. 100cc of villegas colored urine visualized in collection bag Back: normal inspection Extremities/Musculoskelatal: normal inspection (R Ankle deformity noted on medial aspect (chronic)), normal capillary refill, no pedal edema, normal range of motion Neurologic/Psych: no motor/sensory deficits, alert, normal mood/affect, oriented x 3 Skin: normal color, warm/dry Laboratory Results: Last 24 Hours Test 03/17/17 14:02 03/18/17 05:38 03/18/17 08:08 03/18/17 08:09 Hemoglobin 9.6 g/dL 8.8 g/dL Hematocrit 27.9 % 27.7 % White Blood Count 8.19 K/uL Red Blood Count 3.23 M/uL Mean Corpuscular Volume 85.8 fL Mean Corpuscular Hemoglobin 27.2 pg Mean Corpuscular Hemoglobin Concent 31.8 g/dl RDW Standard Deviation 45.9 fL RDW Coefficient of Variation 14.7 % Platelet Count 286 K/uL Mean Platelet Volume 10.5 fL Sodium Level 141 mmol/L Potassium Level 3.2 mmol/L Chloride Level 110 mmol/L Carbon Dioxide Level 25 mmol/L Anion Gap 6.0 mmol/L Blood Urea Nitrogen 4 mg/dl Creatinine 0.73 mg/dl Est Creatinine Clear Calc Drug Dose 138.5 ml/min Estimated GFR () 115.2 Estimated GFR (Non- 99.4 BUN/Creatinine Ratio 5.9 Random Glucose 97 mg/dl Calcium Level 8.1 mg/dl (Michelle Sorensen, P.A.-C.) Assessment & Plan This is a 62yo M prisoner from [facility] with PMH of HCV who presents after having 4-5 episodes of black, tarry stools over the past week and was found to have a non-bleeding duodenal ulcer. Upper GI bleed 2/2 duodenal ulcer: resolving -Endorses 4-5 episodes of melena over the past week. 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) prior to becoming an inmate in -EGD (03/17/17) with one 8mm non-bleeding, cratered duodenal ulcer with a clean ulcer base -Per GI recs, discharge on protonix 40mg PO BID for 2 months, then 20mg daily -Follow-up on stool antigen for H pylori Acute blood loss anemia 2/2 GI bleed: resolving -Hemodynamically stable -Endorses some lightheadedness but denies CP, palpitations, headache -Received another unit of prbcs overnight (for a total of 3 during admission) -Hgb now 8.8 -Iron studies pending -Recheck CBC in 3 days Hypokalemia: -K of 3.2 today -Repleted 40 meq orally and restarted normal diet Hematuria: -100cc of villegas colored urine visualized in collection bag. Was clear last night. -Pt denies any pain from catheter site -Likely a mechanical problem with catheter -Will discuss with urology for recs PTD HCV: -Received records from [facility] with HCV listed as PMH -Preliminary lab for + HCV -Transaminitis: ALT: 382, AST: 178 -Autoimmune panel pending -Discussed with GI, who recommended follow-up with GI out-patient ([facility] [place] [facility] Enlarged prostate: -CT abd/pelvis showing "Marked enlargement and heterogeneity of the prostate measuring up to 6.5x 6.7 x 11.5 cm causes significant mass effect on the floor of the urinary bladder " -Urology consulted 2/2 urinary retention. Narvaez placed and 900cc drained. -Plan to discharge on finasteride 5mg and tamsulosin 0.4mg daily -Discharge with catheter in place. Voiding trial in a few days. -Recheck PSA in a month. If still elevated to 50, recommend a prostate biopsy -Will require close PCP follow-up Pulmonary nodule: -CT Abd/pelvis showing "3.4 mm noncalcified pulmonary nodule of the lateral basal segment left lower lobe" -Recommend out-patient CT scan follow-up, especially since pt is a smoker DVT Ppx: SCDs Code status: FULL Dispo: Telemetry overnight Discharge planning: home Current Inpatient Medications: Current Inpatient Medications Medications (Trade) Dose Ordered Sig/Gabriel Route Start Time Stop Time Status Last Admin Dose Admin Ioversol (Optiray 320) 100 ml UD PRN IV 03/16/17 13:30 03/20/17 13:29 Acetaminophen (Tylenol Tab) 650 mg Q4H PRN PO 03/16/17 15:30 04/15/17 15:29 03/16/17 19:56 650 MG Ondansetron HCl (Zofran Inj) 4 mg Q6H PRN IV 03/16/17 15:30 04/15/17 15:29 Acetaminophen (Tylenol Supp) 650 mg Q4H PRN [place] 03/16/17 21:30 04/15/17 21:29 Pantoprazole Sodium (Protonix Tab) 40 mg BID PO 03/17/17 21:00 04/16/17 20:59 03/17/17 20:37 40 MG Finasteride (Proscar Tab) 5 mg QAM PO 03/18/17 09:00 04/17/17 08:59 Tamsulosin HCl (Flomax Cap) 0.4 mg HS PO 03/17/17 21:00 04/16/17 20:59 03/17/17 20:37 0.4 MG (Michelle Sorensen ., P.A.-C.) ATTENDING ADDENDUM care coordinated with MOOSE Sorensen please refer to her notes for full details, I agree with her notes patient seen and examined, records reviewed by myself as well on exam, patient seen resting in bed, comfortable reports mild posterior neck pain, worse with head extension- feels stiff denies arm weakness, numbness, shooting pain denies chest pain, dyspnea, dizziness no abdominal pain nausea/vomiting had red colored urine in AM, clearing now no other symptoms states he is ok for discharge today VS noted and reviewed oriented x 3 , not in distress, speaks in sentences with no effort nor accessory muscle use neck: no swelling/erythema/warmth (+) pain on the posterior neck with head extension feels better on palpation normal rate, regular rhythm, no murmurs clear breath sounds bilaterally non distended, soft, nontender no bipedal edema, erythema, warmth Narvaez cath in place: pink urine no neuro deficits Hg 9 crea 0.73 ASSESSMENT/PLAN> UPPER GI BLEED SECONDARY TO DUODENAL ULCER discharge on Protonix BID stool Ag for H pylori as outpatient monitor Hg ANEMIA, ACUTE BLOOD LOSS SECONDARY TO #1 Hg stable at ~9 after 3 units pRBC Iron 26, PO Fe started monitor as outpatient other diagnoses and plan of care as per MOOSE Sorensen's notes Noah Akins MD (Noah Akins MD)
[2017-03-18 09:13] LABS: MAGNESIUM 2.3 mg/dl (1.8-2.4)
[2017-03-18] MEDS: FERROUS SULFATE 325 MG TAB PO SCH ×3 (09:30→16:32)
[2017-03-18] MEDS: PANTOprazole SOD 40 MG TAB PO SCH (10:24)
[2017-03-18 11:31] VITALS: BP 107/57; PULSE 80; TEMP 36.6; O2SAT 98
[2017-03-18 13:21] LABS: HEMATOCRIT 29.1 % (42-52)
[2017-03-18] MEDS ORDERED: LIDODERM (LIDOCAINE) PATCH 5% TD ONE (14:00)
[2017-03-18 15:03] VITALS: BP 114/66; PULSE 90; TEMP 36.6; O2SAT 99
--- NOTE | 2017-03-18 15:24 | Progress Note ---
Subjective Date of Service: Mar 18, 2017. Subjective Pt evaluation today including: conversation w/ patient, physical exam, chart review Voiding: narvaez catheter in place There was some concern about the catheter being clogged. he leaked a bit around the catheter yet he did not have the feeling of bladder distention that he did prior to narvaez placement yesterday. Right now the catehter is draining yellow urine. He had 2 units of blood Problem List Medical Problems: (1) Anemia Status: Acute (2) GI bleed Status: Acute Review of Systems Constitutional: No fever, No sweats Abdomen: + diarrhea, No nausea, No vomiting Male : + incontinence, + hematuria Objective Vital Signs Date Time Temp Pulse Resp B/P (MAP) Pulse Ox O2 Delivery O2 Flow Rate FiO2 03/18/17 15:03 36.6 90 20 114/66 (82) 99 Room Air 03/18/17 12:00 Room Air 03/18/17 11:31 36.6 80 18 107/57 (74) 98 Room Air 03/18/17 08:00 Room Air 03/18/17 08:00 36.7 81 18 119/66 (83) 96 Room Air 03/18/17 04:44 36.7 75 18 124/66 (85) 97 Room Air 03/18/17 04:00 Room Air 03/18/17 00:00 Room Air 03/17/17 23:50 36.9 91 18 113/62 (79) 97 Room Air 03/17/17 20:00 Room Air 03/17/17 19:11 36.9 61 18 119/69 (86) 98 Room Air 03/17/17 16:00 Room Air 03/17/17 15:58 37.0 76 20 119/57 (77) 97 Room Air Physical Exam General Appearance: WD/WN, no apparent distress, + thin Respiratory/Chest: normal breath sounds, no respiratory distress, no accessory muscle use Neurologic/Psychiatric: alert, normal mood/affect, oriented x 3 Skin: normal color, warm/dry, no rash Comments: narvaez in place taped to right thigh with clear urine in tubing. Laboratory Results Last 24 Hours Test 03/18/17 05:38 03/18/17 13:04 White Blood Count 8.19 K/uL Red Blood Count 3.23 M/uL Hemoglobin 8.8 g/dL 9.6 g/dL Hematocrit 27.7 % 29.1 % Mean Corpuscular Volume 85.8 fL Mean Corpuscular Hemoglobin 27.2 pg Mean Corpuscular Hemoglobin Concent 31.8 g/dl RDW Standard Deviation 45.9 fL RDW Coefficient of Variation 14.7 % Platelet Count 286 K/uL Mean Platelet Volume 10.5 fL Sodium Level 141 mmol/L Potassium Level 3.2 mmol/L Chloride Level 110 mmol/L Carbon Dioxide Level 25 mmol/L Anion Gap 6.0 mmol/L Blood Urea Nitrogen 4 mg/dl Creatinine 0.73 mg/dl Est Creatinine Clear Calc Drug Dose 138.5 ml/min Estimated GFR () 115.2 Estimated GFR (Non- 99.4 BUN/Creatinine Ratio 5.9 Random Glucose 97 mg/dl Calcium Level 8.1 mg/dl Magnesium Level 2.3 mg/dl Iron Level 26 mcg/dl Assessment and Plan urinary retention very large prostate with very high psa home with narvaez void trial on Wednesday flomax and finasteride daily I need to see him in about a month for a prostate biopsy. i need to give him some time to recover from his HGI bleed with acute blood loss anemia Discharge planning: home
[2017-03-18] MEDS ORDERED: FLM4 PO (17:27)
[2017-03-18] MEDS ORDERED: PRS5 PO (17:27)
[2017-03-18] MEDS ORDERED: MCRK20 PO (17:27)
[2017-03-18] MEDS ORDERED: FRRS300 PO (17:27)
[2017-03-18] MEDS ORDERED: PRT40 PO (17:27)
--- NOTE | 2017-03-18 17:34 | Discharge Instructions ---
Discharge Instructions Date of Service Mar 18, 2017. Admission Reason for Admission: Gi Bleed Discharge Discharge Diagnosis / Problem: UPPER GI BLEED SECONDARY TO DUODENAL ULCER Discharge Goals Goal(s): Diagnostic testing, Therapeutic intervention Activity Recommendations Activity Level: Ambulates in room . Additional Information Patient informed of condition: Yes Advance Directives: No (UNKNOWN) DNR: No (PATIENT IS FULL CODE) Level of Care: Other ([facility]AC[facility]) Communicable Disease: No Prognosis: Improving Levin Catheter: Yes Instructions / Follow-Up Instructions / Follow-Up PLEASE REPEAT CBC, POTASSIUM IN 2-3 DAYS. NO NSAIDS, BLOOD THINNERS. PERFORM STOOL ANTIGEN TEST FOR H PYLORI. MONITOR IRON LEVELS AND LIVER FUNCTION TEST REGULARLY. PATIENT NEEDS GASTROENTEROLOGY FOLLOW UP IN 2 WEEKS. TRIAL OF VOIDING ON WEDNESDAY. FOLLOW UP WITH DR. EVELYN FERRELL (UROLOGIST- [facility]) IN ABOUT A MONTH FOR PROSTATE BIOPSY. FOLLOW UP LUNG NODULE WITH CT CHEST ACCORDING TO GUIDELINES. PLEASE REFER TO ACCOMPANYING DISCHARGE SUMMARY FOR FURTHER DETAILS. Current Hospital Diet Patient's current hospital diet: Regular Diet Discharge Diet Recommended Diet: Regular Diet Procedures Procedures Performed: EGD Pending Studies Studies pending at discharge: yes List of pending studies: PLEASE REPEAT CBC, POTASSIUM IN 2-3 DAYS. NO NSAIDS, BLOOD THINNERS. PERFORM STOOL ANTIGEN TEST FOR H PYLORI. MONITOR IRON LEVELS AND LIVER FUNCTION TEST REGULARLY. PATIENT NEEDS GASTROENTEROLOGY FOLLOW UP IN 2 WEEKS. TRIAL OF VOIDING ON WEDNESDAY. FOLLOW UP WITH DR. EVELYN FERRELL (UROLOGIST- [facility]) IN ABOUT A MONTH FOR PROSTATE BIOPSY. FOLLOW UP LUNG NODULE WITH CT CHEST ACCORDING TO GUIDELINES. PLEASE REFER TO ACCOMPANYING DISCHARGE SUMMARY FOR FURTHER DETAILS. Physician Orders On Transfer Special Precautions: PLEASE REPEAT CBC, POTASSIUM IN 2-3 DAYS. NO NSAIDS, BLOOD THINNERS. PERFORM STOOL ANTIGEN TEST FOR H PYLORI. MONITOR IRON LEVELS AND LIVER FUNCTION TEST REGULARLY. PATIENT NEEDS GASTROENTEROLOGY FOLLOW UP IN 2 WEEKS. TRIAL OF VOIDING ON WEDNESDAY. FOLLOW UP WITH DR. EVELYN FERRELL (UROLOGIST- [facility]) IN ABOUT A MONTH FOR PROSTATE BIOPSY. FOLLOW UP LUNG NODULE WITH CT CHEST ACCORDING TO GUIDELINES. PLEASE REFER TO ACCOMPANYING DISCHARGE SUMMARY FOR FURTHER DETAILS. Medical Emergencies . Who to Call and When: Medical Emergencies: If at any time you feel your situation is an emergency, please call 911 immediately. . Non-Emergent Contact Non-Emergency issues call your: Primary Care Provider, Urologist Call Non-Emergent contact if: you have a fever, your pain is not controlled, your pain is worsening, you have any medication questions . Past History Medical & Surgical History: (1) Anemia (2) GI bleed (3) Hx of abdominal pain . "Provider Documentation" section prepared by Noah Akins. . Core Measure Problem Core Measures: None
--- NOTE | 2017-03-18 17:43 | Discharge Summary ---
Discharge Summary Date of Service Mar 18, 2017. Discharge Summary Admission Date: Mar 16, 2017 at 15:27 Discharge Date: Mar 18, 2017 Discharge Disposition: Home Principal Diagnosis: Upper GI bleed 2/2 duodenal ulcer: resolving Secondary Diagnoses/Problems: Please refer to hospital course below. Procedures: s/p EGD 03/17/17 DICTATED BY: Lazarus Andrew MD Procedure Date: 03/17/2017 9:05 AM Procedure: Upper GI endoscopy Indications: Melena Medicines: General Anesthesia Complications: No immediate complications. Estimated blood loss: None. Estimated Blood Loss: Estimated blood loss: none. Procedure: Pre-Anesthesia Assessment: - Pre-Anesthesia Assessment: - Prior to the procedure, a History and Physical was performed, and patient medications, allergies and sensitivities were reviewed. The patient's tolerance of previous anesthesia was reviewed. Please see [employer] for complete details. - The risks and benefits of the procedure and the sedation options and risks were discussed with the patient. All questions were answered and informed consent was obtained. - Patient identification and proposed procedure were verified prior to the procedure by the physician and the nurse. The procedure was verified in the pre-procedure area in the procedure room. After obtaining informed consent, the endoscope was passed carefully and meticuously under direct vision and only advanced when the lumen was clearly identified, C02 insuflation was utilized throughout the entirity of the procedure. Throughout the procedure, the patient's blood pressure, pulse, and oxygen saturations were monitored continuously. - Pre-Anesthesia Assessment: - Prior to the procedure, a History and Physical was performed, and patient medications, allergies and sensitivities were reviewed. The patient's tolerance of previous anesthesia was reviewed. Please see [employer] for complete details. - The risks and benefits of the procedure and the sedation options and risks were discussed with the patient. All questions were answered and informed consent was obtained. - Patient identification and proposed procedure were verified prior to the procedure by the physician and the nurse. The procedure was verified in the pre-procedure area in the procedure room. After obtaining informed consent, the endoscope was passed carefully and meticuously under direct vision and only advanced when the lumen was clearly identified, C02 insuflation was utilized throughout the entirity of the procedure. Throughout the procedure, the patient's blood pressure, pulse, and oxygen saturations were monitored continuously. After obtaining informed consent, the endoscope was passed under direct vision. Throughout the procedure, the patient's blood pressure, pulse, and oxygen saturations were monitored continuously.The upper GI endoscopy was accomplished without difficulty. The patient tolerated the procedure well. The Scope was introduced through the mouth, and advanced to the second part of duodenum. Findings: The examined esophagus was normal. The entire examined stomach was normal. One non-bleeding cratered duodenal ulcer with a clean ulcer base (Elvis Class III) was found in the duodenal bulb. The lesion was 8 mm in largest dimension. Impression: - Normal esophagus. - Normal stomach. - One non-bleeding duodenal ulcer with a clean ulcer base (Elvis Class III). - No specimens collected. Recommendation: - Return patient to [facility] for ongoing care. - Clear liquid diet. - Use Protonix (pantoprazole) 40 mg PO BID for 2 months, then 20 mg daily. - No NSAIDS - Stool antigen for H Pylori - If no bleeding overnight, then can d/c in the am. Lazarus Andrew MD 03/17/2017 9:28:24 AM ABD/PELVIS IV CONTRAST ONLY HISTORY: 62 years-old Male Pt c/o abd discomfort, gi bleed COMPARISON: None available TECHNIQUE: Axial CT images of the abdomen and pelvis were obtained following the intravenous administration of 93 mL Optiray 320. A dose lowering technique was used consistent with the principals of ALARA. FINDINGS: Linear subsegmental pleural based opacities of the right greater than left lung bases suggest atelectasis with scarring. There is a 4 mm noncalcified pulmonary nodule of the lateral basal segment left lower lobe. No pneumoperitoneum is identified. The imaged inferior cardiac chambers are unremarkable. The liver, gallbladder, pancreas and adrenal glands appear normal. There is a nonspecific 4 mm low attenuating lesion of the mid spleen which is too small to characterize. There are a few low attenuating subcentimeter circumscribed lesions of the bilateral kidneys, largest on the right measuring 10 mm suggesting cysts. No renal calculi or hydronephrosis. There is marked enlargement and heterogeneity of the prostate measuring up to 6.5 x 6.7 x 11.5 cm in AP, transverse and craniocaudal dimensions extending into the bladder base causing significant mass effect upon the bladder. There is wall thickening of the urinary bladder gradually. There is mild atherosclerosis of the abdominal aorta. There is no bulky retroperitoneal adenopathy. There is no bowel obstruction. No colonic mass is identified. No focal bowel wall thickening or inflammatory changes to account for the patient's symptoms. No evidence of acute appendicitis. Small fat filled umbilical hernia is noted with diastases of the umbilical [1.5 cm. There are postsurgical changes of the right lower anterior abdominal wall. The bones appear intact. IMPRESSION: 1. No acute intra-abdominal or intrapelvic abnormality identified. No bowel obstruction. 2. Marked enlargement and heterogeneity of the prostate measuring up to 6.5 x 6.7 x 11.5 cm causes significant mass effect on the floor of the urinary bladder without evidence of urinary bladder outlet obstruction. Correlate with physical exam and PSA level. 3. 4 mm noncalcified pulmonary nodule of the lateral basal segment left lower lobe. Please refer to below summary of Fleischner criteria recommendations for follow-up of incidental CT nodules (José Luis Medrano, Guidelines for management of small pulmonary nodules detected on CT scans: A statement from the Fleischner Society, Radiology 237: [phone].) SOLID NODULES Solitary nodule size: <6 mm * Low risk patients: no follow-up needed * high risk patients: optional CT at 12 months Note: newly detected indeterminate nodule in persons 35 years of age or older. * Low risk patients: minimal or absent history of smoking and/or other known risk factors * high risk patients: history of smoking or of other known risk factors (e.g. first degree relative with lung cancer, or exposure to asbestos, radon, uranium) * if a nodule up to 8 mm is partly solid or is ground glass further follow-up is required after 24 months to exclude possible slow growing adenocarcinoma (PILO) Consultations: Recreation Assistant Dr. Lazarus Andrew, Urologist Dr. Evelyn Ferrell Pending Studies/Follow-Up: PLEASE REPEAT CBC, POTASSIUM IN 2-3 DAYS. NO NSAIDS, BLOOD THINNERS. PERFORM STOOL ANTIGEN TEST FOR H PYLORI. MONITOR IRON LEVELS AND LIVER FUNCTION TEST REGULARLY. PATIENT NEEDS GASTROENTEROLOGY FOLLOW UP IN 2 WEEKS. TRIAL OF VOIDING ON WEDNESDAY. FOLLOW UP WITH DR. EVELYN FERRELL (UROLOGIST- [facility]) IN ABOUT A MONTH FOR PROSTATE BIOPSY. FOLLOW UP LUNG NODULE WITH CT CHEST ACCORDING TO GUIDELINES. PLEASE REFER TO HOSPITAL COURSE BELOW FOR FURTHER DETAILS. Medication Reconciliation New Medications: Potassium Chloride (Klor-Con M20) 20 Meq Tabcr 1 TAB PO DAILY for 5 Days, #5 TABS 0 Refills Ferrous Sulfate (Ferrous Sulfate) 325 Mg Tab 325 MG PO BIDM for 30 Days, #60 TABS 1 Refill Finasteride (Finasteride) 5 Mg Tab 5 MG PO QAM for 30 Days, #30 TAB 1 Refill Pantoprazole (Pantoprazole Sodium) 40 Mg Tab 40 MG PO BID for 30 Days, #60 TAB 1 Refill Tamsulosin HCl (Tamsulosin HCl) 0.4 Mg Cap 0.4 MG PO HS for 30 Days, #30 CAP 1 Refill Discontinued Medications: Pantoprazole (Protonix) 40 Mg Tab 40 MG PO DAILY, #30 TAB Admission Information HPI (per Admitting provider): Patient is a 62yo M prisoner from [facility] with no known PMH who presents after having 4-5 episodes of black, tarry stools over the past week. Last episode was this morning. A week ago, patient started to experience a decreased appetite, followed by abdominal cramps. Took one tablet of an unknown laxative to try and alleviate abdominal pain but cramps persisted. Over the next 5 days, patient felt nauseous and had 3-4 episodes of vomiting each day. Describes emesis as "frothy" but does not know much more about its character since he was in the dark. Thinks 1 episode had a trace amount of bright red blood but is unsure. During this time, patient also had 5 episodes of black, tarry mushy stool, with his last episode occurring this morning. Denies any NSAID use or hx of GI bleeds. Other symptoms at this time include subjective fever and chills. On Wednesday, pt was feeling lightheaded in the yard and "fell over". [facility] where he was monitored more closely over the past few days, given fluid and started on protonix. Was told that he has hepatitis but the guards accompanying him did not bring any records that reflect that finding. Was sent here once infirmary found his Hgb to be 7. At this time, patient feels weak and tired with some pain at the base of his neck which he attributes to tension. Denies any lightheadedness, headache, CP, palpitations, dyspnea, SOB, abd pain or nausea. Of note, patient had a normal colonoscopy and ?EGD in 2008. Physical Exam (per Admitting): General Appearance: WD/WN (Fatigued.), no apparent distress Head: normocephalic, atraumatic Eyes: normal inspection (Ptosis of left eyelid (chronic)), PERRL ENT: normal ENT inspection, hearing grossly normal Neck: supple, no adenopathy Respiratory/Chest: chest non-tender, lungs clear, normal breath sounds, no respiratory distress, no accessory muscle use Cardiovascular: regular rate, rhythm, no murmur, normal peripheral pulses Abdomen/GI: normal bowel sounds, non tender, soft, no organomegaly Back: normal inspection Extremities/Musculoskelatal: normal inspection (R Ankle deformity noted on medial aspect (chronic)), normal capillary refill, no pedal edema, normal range of motion Neurologic/Psych: no motor/sensory deficits, alert, normal mood/affect, oriented x 3 Skin: normal color, warm/dry Hospital Course This is a 62yo M prisoner from [facility] with PMH of HCV who presents after having 4-5 episodes of black, tarry stools over the past week and was found to have a non-bleeding duodenal ulcer. Upper GI bleed 2/2 duodenal ulcer: resolving -Endorses 4-5 episodes of melena over the past week. 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) prior to becoming an inmate in -EGD (03/17/17) with one 8mm non-bleeding, cratered duodenal ulcer with a clean ulcer base -Per GI recs, discharge on protonix 40mg PO BID for 2 months, then 20mg daily -Perform stool antigen for H pylori - follow up with Recreation Assistant in about 2 weeks No NSAIDs, blood thinners Acute blood loss anemia 2/2 GI bleed: resolving Iron Deficiency -Hemodynamically stable -Endorses some lightheadedness but denies CP, palpitations, headache -Received another unit of prbcs overnight (for a total of 3 during admission) -Hgb improved from 7.3 to 9 -Iron 26 -Recheck CBC in 3 days, then regularly Iron supplement started - monitor as outpatient Hypokalemia -K of 3.2 today -Repleted 40 meq orally and restarted normal diet - given K supplement x 5 days repeat K in 2-3 days Hematuria: -100cc of villegas colored urine visualized in collection bag. -Pt denies any pain from catheter site -Likely a mechanical problem with catheter - discussed with Dr. Ferrell- Urologist continue Levin cath for now, trial of voiding on Wednesday monitor Enlarged prostate, Elevated PSA -CT abd/pelvis showing "Marked enlargement and heterogeneity of the prostate measuring up to 6.5x 6.7 x 11.5 cm causes significant mass effect on the floor of the urinary bladder " -Urology consulted 2/2 urinary retention. Levin placed and 900cc drained. -Plan to discharge on finasteride 5mg and tamsulosin 0.4mg daily continue Levin cath for now, trial of voiding on Wednesday - Follow up with Dr. Evelyn Ferrell- [facility] Urologist in about a month for prostate biopsy HCV: -Received records from [facility] with HCV listed as PMH -Preliminary lab for + HCV -Transaminitis: ALT: 382, AST: 178 -Autoimmune panel pending -Discussed with GI, who recommended follow-up with GI out-patient (coordinated by care home) Pulmonary nodule: -CT Abd/pelvis showing "3.4 mm noncalcified pulmonary nodule of the lateral basal segment left lower lobe" -Recommend out-patient CT scan follow-up, especially since pt is a smoker DVT Ppx: SCDs Code status: FULL [facility] ff up with Recreation Assistant Dr. Andrew in about 2 weeks ff up with Urologist Dr. Ferrell in about a month Total time spent on discharge = 50 minutes This includes examination of the patient, discharge planning, medication reconciliation, and communication with other providers. Discharge Instructions Discharge Instructions Date of Service Mar 18, 2017. Admission Reason for Admission: Gi Bleed Discharge Discharge Diagnosis / Problem: UPPER GI BLEED SECONDARY TO DUODENAL ULCER Discharge Goals Goal(s): Diagnostic testing, Therapeutic intervention Activity Recommendations Activity Level: Ambulates in room . Additional Information Patient informed of condition: Yes Advance Directives: No (UNKNOWN) DNR: No (PATIENT IS FULL CODE) Level of Care: Other ([facility]ILITY) Communicable Disease: No Prognosis: Improving Levin Catheter: Yes Instructions / Follow-Up Instructions / Follow-Up PLEASE REPEAT CBC, POTASSIUM IN 2-3 DAYS. NO NSAIDS, BLOOD THINNERS. PERFORM STOOL ANTIGEN TEST FOR H PYLORI. MONITOR IRON LEVELS AND LIVER FUNCTION TEST REGULARLY. PATIENT NEEDS GASTROENTEROLOGY FOLLOW UP IN 2 WEEKS. TRIAL OF VOIDING ON WEDNESDAY. FOLLOW UP WITH DR. EVELYN FERRELL (UROLOGIST- [facility]) IN ABOUT A MONTH FOR PROSTATE BIOPSY. FOLLOW UP LUNG NODULE WITH CT CHEST ACCORDING TO GUIDELINES. PLEASE REFER TO ACCOMPANYING DISCHARGE SUMMARY FOR FURTHER DETAILS. Current Hospital Diet Patient's current hospital diet: Regular Diet Discharge Diet Recommended Diet: Regular Diet Procedures Procedures Performed: EGD Pending Studies Studies pending at discharge: yes List of pending studies: PLEASE REPEAT CBC, POTASSIUM IN 2-3 DAYS. NO NSAIDS, BLOOD THINNERS. PERFORM STOOL ANTIGEN TEST FOR H PYLORI. MONITOR IRON LEVELS AND LIVER FUNCTION TEST REGULARLY. PATIENT NEEDS GASTROENTEROLOGY FOLLOW UP IN 2 WEEKS. TRIAL OF VOIDING ON WEDNESDAY. FOLLOW UP WITH DR. EVELYN FERRELL (UROLOGIST- [facility]) IN ABOUT A MONTH FOR PROSTATE BIOPSY. FOLLOW UP LUNG NODULE WITH CT CHEST ACCORDING TO GUIDELINES. PLEASE REFER TO ACCOMPANYING DISCHARGE SUMMARY FOR FURTHER DETAILS. Physician Orders On Transfer Special Precautions: PLEASE REPEAT CBC, POTASSIUM IN 2-3 DAYS. NO NSAIDS, BLOOD THINNERS. PERFORM STOOL ANTIGEN TEST FOR H PYLORI. MONITOR IRON LEVELS AND LIVER FUNCTION TEST REGULARLY. PATIENT NEEDS GASTROENTEROLOGY FOLLOW UP IN 2 WEEKS. TRIAL OF VOIDING ON WEDNESDAY. FOLLOW UP WITH DR. EVELYN FERRELL (UROLOGIST- [facility]) IN ABOUT A MONTH FOR PROSTATE BIOPSY. FOLLOW UP LUNG NODULE WITH CT CHEST ACCORDING TO GUIDELINES. PLEASE REFER TO ACCOMPANYING DISCHARGE SUMMARY FOR FURTHER DETAILS. Medical Emergencies . Who to Call and When: Medical Emergencies: If at any time you feel your situation is an emergency, please call 911 immediately. . Non-Emergent Contact Non-Emergency issues call your: Primary Care Provider, Urologist Call Non-Emergent contact if: you have a fever, your pain is not controlled, your pain is worsening, you have any medication questions . Past History Medical & Surgical History: (1) Anemia (2) GI bleed (3) Hx of abdominal pain . "Provider Documentation" section prepared by Noah Akins. . Core Measure Problem Core Measures: None
[2017-03-18 18:03] VITALS: BP 114/66; PULSE 90; TEMP 36.6; O2SAT 99
[2017-03-19] MEDS ORDERED: LIDODERM (LIDOCAINE) PATCH 5% TD SCH (09:00)
[2017-03-20 01:01] LABS: ALPHA-1-ANTITRYPSIN TC 67710E 194 MG/DL (83-199)
[2017-03-20 10:59] LABS: HEPATITIS C RNA TMA QUAL Detected
== END 2017-03-18 19:15 | disposition home or self-care (01) | DRG 378 ==
LOC: C.EDB 12:47 → C.2T 15:27 → ENRESERV 15:48
PROVIDERS: ADMIT Internal Medicine; ATTEND Internal Medicine
PROC: 0DJ08ZZ Inspection of Upper Intestinal Tract, Via Natural or Artificial Opening Endoscopic (ICD-10-PCS; principal; 2017-03-17 08:39)
DX: K26.4 Chronic or unspecified duodenal ulcer with hemorrhage (principal); D62 Acute posthemorrhagic anemia; R39.12 Poor urinary stream; R35.0 Frequency of micturition; R33.8 Other retention of urine; N40.1 Benign prostatic hyperplasia with lower urinary tract symptoms; R35.1 Nocturia; R31.9 Hematuria, unspecified; K21.9 Gastro-esophageal reflux disease without esophagitis; E87.6 Hypokalemia; R91.1 Solitary pulmonary nodule; Z80.8 Family history of malignant neoplasm of other organs or systems